=== PATIENT | female | born 1995 | race African-American/Black ===

== ENCOUNTER 2020-06-17 12:46 | Emergency (ER) | payer OTHER, SELFPAY ==
[2020-06-17] VITALS (8 sets, daily range): BP systolic 124–151; BP diastolic 60–84; PULSE 67–83; RESP 16–22; TEMP 36.8; O2SAT 100
--- NOTE | ~2020-06-17 | XR_ITS ---
EXAMINATION: XR chest 2V EXAM DATE: 06/17/2020 14:04 INDICATION: Chest pain . TECHNIQUE: Frontal and lateral projections of the chest obtained and reviewed. Comparison is made to prior examination from 07/09/2018. FINDINGS: The lungs are clear. There are no pleural effusions. The cardiomediastinal silhouette is within normal limits. There is no pneumothorax suspected. Mild thoracic spondylosis. IMPRESSION: No acute cardiopulmonary findings. Reviewed, dictated and finalized at location B. OR SYSTEMS ADMINISTRATOR
--- NOTE | 2020-06-17 13:17 | ED.CHESTPAIN ---
HPI - Chest Pain General Chief Complaint: Chest Pain Stated Complaint: Chest Pain Time Seen by Provider: 06/17/20 13:00 History of Present Illness HPI narrative: Patient is a 25-year-old female who presents the ER with chest pain. Ongoing for 3 days. Is been intermittent in nature. Lasts no longer than a minute. Is occurred 1 time a day for each the last few days. Initially left side. Then it became bilateral, and then it was once again left-sided. Sharp/achy. No radiation. No nausea/vomiting/sweats/dyspnea. No known trauma. Has family history of heart disease with an uncle dying at age 10 and her father dying in his 40s of an CT. She is unsure what her uncles heart ailment was. She has never seen a rn cardiac and has not had heart disease diagnosed personally. Related Data Home Medications Medication Instructions Recorded Confirmed albuterol sulfate INHALATION 06/17/20 Allergies Allergy/AdvReac Type Severity Reaction Status Date / Time codeine Allergy Intermediate Hives / Verified 06/17/20 12:58 Red Face Penicillins Allergy Intermediate Hives / Verified 06/17/20 12:58 Red Face Review of Systems Review of Systems: All systems reviewed & are unremarkable except as noted in HPI and below Constitutional: Constitutional: Denies chills, Denies fever(s) and Denies weakness ENT: Denies nasal congestion and Denies sore throat Cardiovascular: Cardiovascular: Reports chest pain, Denies rapid heart rate and Denies radiating jaw, neck or arm pain Respiratory: Respiratory: Denies cough, Denies dyspnea and Denies wheezing Gastrointestinal: Gastrointestinal: Denies nausea and Denies vomiting PMFSH Past Medical History Medical History (Updated 06/17/20 @ 16:34 by Justin Tripathi MD) Asthma Surgical History Surgical History (Updated 06/17/20 @ 13:18 by Justin Tripathi MD) History of section Social History Social History (Updated 06/17/20 @ 13:18 by Justin Tripathi MD) Smoking status: Never smoker Exam Narrative: Exam Narrative: GENERAL: Well-appearing, well-nourished, and in no acute distress. HEAD: Normocephalic, atraumatic.. CHEST: Clear to auscultation. No respiratory distress. No reproducible chest wall tenderness. HEART: Regular rate and rhythm. Normal peripheral pulses. ABDOMEN: Soft, nontender, nondistended. EXTREMITIES: Normal range of motion. No edema. SKIN: Warm, dry, no rash. NEURO: Alert and oriented x3. PSYCH: Normal mood and affect. Course Course Emergency Course: Troponin negative. Chest pain-free. Discharge home. Recommend establishing care with primary care doctor given her family history of heart issues. Vital Signs Vital signs: Vital Signs Temperature 98.3 F 06/17/20 12:55 Pulse Rate 79 06/17/20 12:55 Respiratory Rate 16 06/17/20 12:55 Blood Pressure 124/78 06/17/20 12:55 Pulse Oximetry 100 06/17/20 12:55 Temperature 98.3 F 06/17/20 12:55 Pulse Rate 71 06/17/20 14:32 Respiratory Rate 19 06/17/20 14:32 Blood Pressure 151/84 H 06/17/20 14:32 Pulse Oximetry 100 06/17/20 14:32 MDM - Chest Pain Lab Data Result diagrams: 06/17/20 13:54 06/17/20 13:54 Labs: Lab Results 06/17/20 06/17/20 Range/Units 13:54 13:54 WBC 5.4 (4.5-10.0) K/mm3 RBC 4.33 (4.2-5.4) M/mm3 Hgb 10.6 L (12.0-15.0) g/dL Hct 33.9 L (37.0-47.0) % MCV 78.3 L (80-100) fl MCH 24.5 L (26-34) pg MCHC 31.3 L (32-36) g/dl RDW 17.9 H (11.5-14.5) % Plt Count 287 (150-375) k/mm3 MPV 11.0 H (7.4-10.4) fl Immature Gran % (Auto) 0.2 (0-0.5) % Neut % (Auto) 42.1 L (45.5-73.1) % Lymph % (Auto) 48.0 H (18.3-44.2) % Scott % (Auto) 6.6 (2.6-8.5) % Eos % (Auto) 2.4 (0-4.4) % Baso % (Auto) 0.7 (0.2-1.2) % Lymph # (Auto) 2.60 (0.9-3.2) K/mm3 Scott # (Auto) 0.4 (0.1-0.6) K/mm3 Eos # (Auto) 0.1 (0-0.3) K/mm3 Baso # (Auto) 0.0 (0.0-0.1)
[2020-06-17 14:07] LABS: Basophils Percent Auto 0.7 % (0.2-1.2); Eosinophils Absolute Auto 0.1 K/mm3 (0-0.3); Eosinophils Percent Auto 2.4 % (0-4.4); Hematocrit 33.9 % (37.0-47.0); Hemoglobin 10.6 g/dL (12.0-15.0); Immature Granulocyte Absolute 0.01 K/mm3 (0.00-0.031); Immature Granulocyte Percent A 0.2 % (0-0.5); Mean Corpuscular HGB Conc 31.3 g/dl (32-36); Mean Corpuscular Hemoglobin 24.5 pg (26-34); Mean Corpuscular Volume 78.3 fl (80-100); Monocytes Absolute Auto 0.4 K/mm3 (0.1-0.6); Monocytes Percent Auto 6.6 % (2.6-8.5); Neutrophils Absolute Auto 2.3 K/mm3 (1.3-6.7); Neutrophils Percent Auto 42.1 % (45.5-73.1); Platelet Count Result 287 k/mm3 (150-375); Red Blood Count 4.33 M/mm3 (4.2-5.4); Red Cell Distribution Width 17.9 % (11.5-14.5); White Blood Count 5.4 K/mm3 (4.5-10.0)
[2020-06-17 14:18] LABS: Anion Gap 7 mmol/L (8-16); Blood Urea Nitrogen 12 mg/dL (7-17); Calcium 8.9 mg/dL (8.4-10.2); Carbon Dioxide 24 mmol/L (22-30); Chloride 108 mmol/L (98-107); Estimated CRCL calculation 85 ml/min; Estimated Glomerular Filt Rate > 60; Glucose 90 mg/dL (65-105); Sodium 139 mmol/L (137-145)
[2020-06-17 14:30] LABS: Troponin I < 0.012 ng/mL (0.000-0.034)
--- NOTE | 2020-06-17 15:01 | ECG_ITS ---
Measurements Intervals [place] Rate: 67 P: 16 PA: 170 QRS: 31 QRSD: 86 T: 11 QT: 362 QTc: 382 Interpretive Statements SINUS RHYTHM WITH SINUS ARRHYTHMIA BASELINE WANDER- V3-V6 BORDERLINE ECG Electronically Signed On 06-17-2020 16:17:20 [employer]IRE WALKER by Leon Alfonso D.O.
== END 2020-06-17 17:08 | disposition home or self-care (01) ==
PROVIDERS: Emergency Provider Emergency Medicine
DX: R07.89 Other chest pain (principal); J45.909 Unspecified asthma, uncomplicated
CPT/HCPCS: 36415; 71046; 80048; 84484; 85025; 93005; 99284

== ENCOUNTER 2020-09-24 22:36 | Emergency (ER) | payer OTHER, SELFPAY ==
--- NOTE | 2020-09-24 22:44 | ED.URI ---
HPI - URI/Sore Throat General Chief Complaint: Upper Respiratory Infection Stated Complaint: sore throat , ear ache, headache Time Seen by Provider: 09/24/20 22:38 History of Present Illness HPI Narrative: Sore throat for 3 days. now left ear pressure and intermittent headaches. Negative COVID test today. Her son also has an ear ache. No cough, fever, nausea. Related Data Home Medications Medication Instructions Recorded Confirmed albuterol sulfate INHALATION 06/17/20 Allergies Allergy/AdvReac Type Severity Reaction Status Date / Time codeine Allergy Intermediate Hives / Verified 06/17/20 12:58 Red Face Penicillins Allergy Intermediate Hives / Verified 06/17/20 12:58 Red Face Review of Systems Review of Systems: All systems reviewed & are unremarkable except as noted in HPI and below Constitutional: Constitutional: Reports as per HPI ENT: Reports as per HPI Cardiovascular: Cardiovascular: Denies chest pain Respiratory: Respiratory: Denies cough and Denies dyspnea Gastrointestinal: Gastrointestinal: Denies abdominal pain and Denies nausea Genitourinary: Genitourinary: Reports no additional female genitourinary complaints PMFSH Past Medical History Medical History Asthma Surgical History Surgical History History of section Social History Social History Smoking status: Never smoker Exam Const: General: healthy appearing, no acute distress and alert Nutritional Appearance: well nourished Orientation/consciousness: patient oriented x3 HENMT: Ears: TM's normal bilaterally and EAC's normal Other: bilateral tonsillar enlargement. Mild oropharyngeal erythema Neck: Neck: lymphadenopathy (anterior) Resp: Effort & Inspection: normal respiratory effort Auscultation: clear to auscultation bilaterally Cardio: Rate: regular rate Rhythm: regular rhythm Skin: General skin exam: normal color Neuro: General: patient oriented x3, moves all extremities and no focal motor deficits Speech: normal speech Gait exam (Neuro): Normal gait present Course Vital Signs Vital signs: Vital Signs Temperature 36.8 C 09/24/20 22:50 Pulse Rate 100 09/24/20 22:50 Respiratory Rate 14 09/24/20 22:50 Blood Pressure 120/88 09/24/20 22:50 Pulse Oximetry 100 09/24/20 22:50 Temperature 36.8 C 09/24/20 22:50 Pulse Rate 97 09/25/20 00:40 Respiratory Rate 18 09/25/20 00:40 Blood Pressure 131/77 09/25/20 00:40 Pulse Oximetry 100 09/25/20 00:40 MDM - URI/Sore Throat Differential Diagnosis Differential diagnosis: Likely viral infection, influenza and pharyngitis Lab Data Attestation: I reviewed the patient's lab results. Labs: Strep Screen Positive Group A Strep *(Reference Range: Negative)* Discharge Plan Discharge Clinical Impression: Acute streptococcal pharyngitis Patient Disposition: Home, Self-Care Condition: Stable Instructions: Antibiotic Form, Strep Throat (ED) Prescriptions: New azithromycin 250 mg tablet See Rx Instructions .ROUTE .COMPLEX Qty: 6 RF: 0 No Action albuterol sulfate 90 mcg/actuation HFA aerosol inhaler INHALATION RF: 0 naproxen 500 mg tablet 500 mg PO BID Qty: 20 RF: 0 Follow-up/Referrals: PHYSICIAN,PRESS CUTTER [Primary Care Provider] - Jona Ortiz MD [Physician] -
[2020-09-24 22:50] VITALS: BP 120/88; PULSE 100; RESP 14; TEMP 36.8; O2SAT 100
[2020-09-24] MEDS: DEXAMETHASONE SOD PHOS INJ 4 MG/ML VIAL 10 MG IM (23:53)
[2020-09-25] MEDS: AZITHROMYCIN 250 MG TABLET 500 MG PO (00:12)
[2020-09-25 00:40] VITALS: BP 131/77; PULSE 97; RESP 18; O2SAT 100
== END 2020-09-25 00:49 | disposition home or self-care (01) ==
PROVIDERS: Emergency Provider Emergency Medicine
DX: J02.0 Streptococcal pharyngitis (principal); J45.909 Unspecified asthma, uncomplicated
CPT/HCPCS: 87880; 96372; 99283; A9270; J1100

== ENCOUNTER 2021-03-08 09:25 | Emergency (ER) | payer OTHER, SELFPAY ==
[2021-03-08 09:35] VITALS: BP 123/78; PULSE 78; RESP 16; TEMP 36.6; O2SAT 99
--- NOTE | 2021-03-08 09:48 | ED.URI ---
HPI - URI/Sore Throat General Chief Complaint: Upper Respiratory Infection Stated Complaint: sore throat/abd pain Time Seen by Provider: 03/08/21 09:48 Source: patient and RN notes reviewed Mode of arrival: ambulatory Limitations: no limitations History of Present Illness HPI Narrative: 25-year-old female presents to the [facility] with complaints of sore throat, bilateral ear discomfort and an upset stomach. Patient states it feels like something rolled into her ears. Denies abdominal pain but states that when she eats stomach feels like it is cramping. Last menstrual period 2 to 3 weeks ago Related Data Home Medications Medication Instructions Recorded Confirmed levonorgestrel-ethinyl estrad tablet 03/08/21 [Lutera (28)] Allergies Allergy/AdvReac Type Severity Reaction Status Date / Time codeine Allergy Intermediate Hives / Verified 06/17/20 12:58 Red Face Penicillins Allergy Intermediate Hives / Verified 06/17/20 12:58 Red Face Review of Systems Review of Systems: All systems reviewed & are unremarkable except as noted in HPI and below Constitutional: Constitutional: Reports as per HPI, Reports chills and Denies fever(s) Eyes: Eyes: Reports no additional eye complaints ENT: Reports as per HPI and Reports sore throat Comments: Bilateral ear discomfort Cardiovascular: Cardiovascular: Reports no additional cardiovascular complaints and Denies chest pain Respiratory: Respiratory: Reports no additional respiratory complaints, Denies cough and Denies dyspnea Gastrointestinal: Gastrointestinal: Reports as per HPI, Denies abdominal pain, Denies diarrhea, Denies nausea and Denies vomiting Genitourinary: Genitourinary: Reports no additional female genitourinary complaints Musculoskeletal: Musculoskeletal: Reports no additional musculoskeletal complaints Integumentary/Breasts: Skin/Breast: Reports system reviewed and no additional complaints, except as docu Neurologic: Reports system reviewed and no additional complaints, except as documented Psychiatric: Psychiatric: Reports no additional psychiatric complaints Allergic/Immunologic: Allergic/Immunologic: Reports no additional allergic/immunologic complaints PMFSH Past Medical History Medical History Asthma Surgical History Surgical History History of section Social History Social History Smoking status: Never smoker Comments At the time of my signature, I reviewed and agree with the nursing past medical, surgical, social, and family history. There is no relevant family history pertinent to the patient complaint. Exam Const: General: healthy appearing, no acute distress and alert Nutritional Appearance: well nourished and obese Orientation/consciousness: patient oriented x3 Limitations: no limitations HENMT: Head: normal to inspection Ears: external ears normal, EAC's normal and TM abnormal with fluid behind the TM bilateral Mouth: Yes lip normal Eyes: Conjunctivae: conjunctivae normal Pupils: Equal, round and reactive pupils present Neck: Neck: normal visual inspection, no lymphadenopathy and no meningeal signs Chest: Chest palpation & inspection: normal inspection of the chest Resp: Effort & Inspection: normal respiratory effort and no use of accessory muscles Auscultation: clear to auscultation bilaterally, no crackles, no rales, no rhonchi and no wheezes Cardio: Rate: regular rate Rhythm: regular rhythm GI: GI Palp: Yes Soft to palpation, No Tenderness to palpation present (GI), No Guarding due to palpation present (GI) and No Rebound tenderness present Auscultation: normal bowel sounds : General: Yes no CVA tenderness Back/Spine/Pelvis: Back: no CVA tenderness Skin: General skin exam: normal color Rashes: no rashes Wounds: no wounds Neuro: Genera
== END 2021-03-08 10:01 | disposition home or self-care (01) ==
PROVIDERS: Emergency Provider Nurse Practitioner
DX: J02.8 Acute pharyngitis due to other specified organisms (principal); J45.909 Unspecified asthma, uncomplicated
CPT/HCPCS: 87081; 87147; 87880; 99213; G0463

== ENCOUNTER → 2021-09-21 15:52 | Outpatient (CLI) | payer OTHER, SELFPAY ==
--- NOTE | ~2021-09-21 | XR_ITS ---
EXAMINATION: XR chest 2V EXAM DATE: 09/21/2021 16:23 INDICATION: Pre-op, Hx of asthma. TECHNIQUE: Frontal and lateral projections of the chest obtained and reviewed. Comparison is made to prior examination from 06/17/2020. FINDINGS: The lungs are clear. There are no pleural effusions. The cardiomediastinal silhouette is within normal limits. There is no pneumothorax suspected. The bones and soft tissues are unremarkab le. IMPRESSION: No acute cardiopulmonary findings. Reviewed, dictated and finalized at location B.
== END ==
DX: Z01.810 Encounter for preprocedural cardiovascular examination (principal)
CPT/HCPCS: 71046

== ENCOUNTER 2021-09-23 14:29 | Outpatient (CLI) | payer OTHER, SELFPAY ==
--- NOTE | 2021-09-23 | ECG_ITS ---
Measurements Intervals [place] Rate: 58 P: 19 MS: 159 QRS: 15 QRSD: 78 T: -4 QT: 383 QTc: 377 Interpretive Statements SINUS BRADYCARDIA WITH SINUS ARRHYTHMIA NONSPECIFIC T-WAVE ABNORMALITY BORDERLINE ECG COMPARED TO ECG 06/17/2020 12:56:46 SINUS BRADYCARDIA NOW PRESENT T-WAVE ABNORMALITY NOW PRESENT Electronically Signed On 09-23-2021 15:36:06 CDT by Grover Liu M.D.
== END 2021-09-23 14:30 | disposition home or self-care (01) ==
LOC: ANHCARD 14:41
DX: Z01.810 Encounter for preprocedural cardiovascular examination (principal); R00.1 Bradycardia, unspecified
CPT/HCPCS: 93005

== ENCOUNTER 2021-10-30 17:50 | Emergency (ER) | payer OTHER, SELFPAY ==
--- NOTE | 2021-10-30 17:53 | ED.URI ---
HPI - URI/Sore Throat General Chief Complaint: Asthma Stated Complaint: shortness of breath, loss of appetite, chest pain Time Seen by Provider: 10/30/21 17:53 Source: patient and RN notes reviewed History of Present Illness HPI Narrative: Patient is a 26-year-old female who presents the urgent care with complaints of cough, congestion, shortness of breath and loss of appetite. Patient states that she had a negative COVID test this morning at work. Patient is on day 3 of symptoms and has been using her nebulizers and inhalers for her history of asthma. Patient is also taking Robitussin for the cough. Denies of any nausea or vomiting. Also reports of some frequency of urination. However, patient is 6 weeks . No other acute complaints. Patient appears fatigued and slightly diaphoretic. Patient aware of the plan of care. Some parts of this dictation were generated by voice recognition software and may contain typographical and/or grammatical inaccuracies. Related Data Home Medications Medication Instructions Recorded Confirmed albuterol 90 mcg INHALATION PRN PRN 10/30/21 10/30/21 Allergies Allergy/AdvReac Type Severity Reaction Status Date / Time codeine Allergy Intermediate Hives / Verified 10/30/21 18:00 Red Face Penicillins Allergy Intermediate Hives / Verified 10/30/21 18:00 Red Face Review of Systems Review of Systems: CONSTITUTIONAL: Reports of chills and sweats EYES: Denies visual changes, redness, or discharge. ENT: Denies rhinorrhea, congestion, sore throat, or otalgia. CARDIOVASCULAR: Denies chest pain, palpitations, or edema. RESPIRATORY: Reports of cough with dyspnea and chest congestion GASTROINTESTINAL: Denies abdominal pain, nausea, vomiting, or diarrhea. Reports of decreased appetite GENITOURINARY: Reports of urinary frequency SKIN: Denies rash or itching. MUSCULOSKELETAL: Denies back pain, joint pain, or myalgia. NEUROLOGIC: Denies headache, numbness, or weakness. All other systems reviewed are negative, except as documented in HPI. [facility] Past Medical History Medical History Asthma Surgical History Surgical History History of section Social History Social History (Reviewed 03/08/21 @ 12:23 by TIFFANIE Reed Smoking status: Never smoker Comments At the time of my signature, I reviewed and agree with the nursing past medical, surgical, social, and family history. There is no relevant family history pertinent to the patient complaint. Exam Narrative: GENERAL: This is a well-nourished, well-developed patient. Appears very fatigued HEAD: normocephalic, atraumatic. EYES: PERRL. Sclera clear/white. Vision is grossly intact. EARS: External ears normal, auditory canals clear and without drainage, TMs normal without perforation. Hearing grossly intact. NOSE: External nose normal with no obvious nasal discharge, nares without redness, clear rhinorrhea. THROAT: Mucous membranes moist, posterior pharynx clear. Moderate postnasal drainage NECK: Neck supple CARDIOVASCULAR: Tachycardia RESPIRATORY: Clear to auscultation. Breath sounds equal bilaterally. No wheezes, rales, or rhonchi. SKIN: Slightly diaphoretic. Warm, intact with no suspicious lesions or rash, good texture and turgor. NEURO: awake, alert, and oriented to person, place and time. There were no obvious focal neurologic abnormalities. EXTREMITIES: No clubbing, cyanosis, or edema. Course Course Level of Care: Express Care Visit Vital Signs Vital signs: Vital Signs Temperature 100.5 F H 10/30/21 17:56 Pulse Rate 133 H 10/30/21 17:56 Respiratory Rate 20 10/30/21 17:56 Blood Pressure 125/64 10/30/21 17:56 Pulse Oximetry 100 10/30/21 17:56 Temperature 100.5 F H 10/30/21 17:56 Pulse Rate 133 H 10/30/21 17:56 Respiratory Rate 20 10/30/21 17:56 Blood Pressure 125/64
[2021-10-30 17:56] VITALS: BP 125/64; PULSE 133; RESP 20; TEMP 38.1; O2SAT 100
[2021-10-30 18:22] VITALS: PULSE 98
== END 2021-10-30 18:26 | disposition home or self-care (01) ==
PROVIDERS: Emergency Provider Nurse Practitioner Family
DX: J10.1 Influenza due to other identified influenza virus with other respiratory manifestations (principal)
CPT/HCPCS: 81003; 87804; 99213; G0463

== ENCOUNTER 2022-01-06 12:42 | Outpatient (CLI) | payer OTHER, SELFPAY ==
--- NOTE | ~2022-01-06 | US_ITS ---
EXAMINATION: US pelvic complete w TV DATE: 01/06/2022 13:58 INDICATION: Complete . Anemia. Comparison:No prior studies for comparison. TECHNIQUE: Multiple transabdominal and endovaginal sonographic images of the pelvis performed. FINDINGS: The uterus measures 8.6 x 4.8 x 6 cm. Uterine myometrium is heterogeneous, although no disc rete mass identified. The endometrial complex measures 11 mm. The right ovary measures 3.8 x 2.3 x 2.1 cm and the left ovary measures 4.6 x 2.2 x 3 cm. There are small follicles in each ovary. Normal doppler signal in both ovaries. There is free fluid in the pelvis. There are no abnormal masses seen on either side. IMPRESSION: 1. Unremarkable pelvic ultrasound. Reviewed, dictated and finalized at location A.
== END 2022-01-06 12:43 | disposition home or self-care (01) ==
LOC: ANHIMG 12:42
PROVIDERS: Visit Provider Advanced Practice Midwife
DX: O04.80 (Induced) termination of pregnancy with unspecified complications (principal); D50.9 Iron deficiency anemia, unspecified
CPT/HCPCS: 76830; 76856

== ENCOUNTER 2022-01-31 17:16 | Emergency (ER) | payer OTHER, SELFPAY ==
[2022-01-31 17:24] VITALS: BP 138/81; PULSE 71; RESP 16; TEMP 36.4; O2SAT 100
--- NOTE | 2022-01-31 17:43 | ED.GENADULT ---
HPI - General Adult General Chief complaint: Nausea/Vomiting/Diarrhea Stated complaint: Nausea Time Seen by Provider: 01/31/22 17:43 Source: patient Mode of arrival: ambulatory Limitations: no limitations History of Present Illness HPI narrative: 26 yo F presents with c/o nausea for 3 days. Reports congestion, sore throat, fatigue starting today. Thinks might be weather related. Would like test. Had in October. Has not had normal period since then. No ABD pain at this time. No urinary symptoms. All systems reviewed and negative except as noted above. Related Data Home Medications Medication Instructions Recorded Confirmed buspirone 7.5 mg tablet 7.5 mg PO BID 01/31/22 01/31/22 Allergies Allergy/AdvReac Type Severity Reaction Status Date / Time codeine Allergy Intermediate Hives / Verified 01/31/22 17:17 Red Face Penicillins Allergy Intermediate Hives / Verified 01/31/22 17:17 Red Face Review of Systems Review of Systems: CONSTITUTIONAL: Denies fever, chills, or sweats. EYES: Denies visual changes, redness, or discharge. ENT: Reports rhinorrhea, congestion, sore throat. Denies otalgia. CARDIOVASCULAR: Denies chest pain, palpitations, or edema. RESPIRATORY: Denies cough or dyspnea. GASTROINTESTINAL: Denies abdominal pain, vomiting, or diarrhea. Reports nausea. GENITOURINARY: Denies dysuria or hematuria. SKIN: Denies rash or itching. MUSCULOSKELETAL: Denies back pain, joint pain, or myalgia. NEUROLOGIC: Denies headache, numbness, or weakness. PSYCHIATRIC: Denies anxiety or depression. All other systems reviewed are negative, except as documented in HPI. PMFSH Past Medical History Medical History Asthma Surgical History Surgical History History of section Social History Social History Smoking status: Never smoker Comments At time of signature, agree with nursing past medical, surgical, social and family history. There is no relevant family history pertinent to the presenting complaint. Exam Narrative: GENERAL: This is a well-nourished, well-developed patient, in no apparent distress. HEAD: normocephalic, atraumatic. EYES: PERRL. Sclera clear/white. Vision is grossly intact. EARS: External ears normal, auditory canals clear and without drainage, TMs normal without perforation. Hearing grossly intact. NOSE: External nose normal with clear nasal drainage, erythema and swelling to both nares. THROAT: Mucous membranes moist, no erythema to posterior pharynx. Clear postnasal drainage noted. NECK: Neck supple, non-tender without lymphadenopathy, masses or thyromegaly. CARDIOVASCULAR: Regular rate and rhythm without murmurs, gallops, or rubs. RESPIRATORY: Clear to auscultation. Breath sounds equal bilaterally. No wheezes, rales, or rhonchi. GASTROINTESTINAL: Abdomen soft, non-tender, nondistended. Bowel sounds are active. No hepato-splenomegaly, or palpable masses. No guarding. SKIN: warm, Dry, intact with no suspicious lesions or rash, good texture and turgor. NEURO: awake, alert, and oriented to person, place and time. There were no obvious focal neurologic abnormalities. EXTREMITIES: No joint tenderness, effusion, or edema noted. Course Course Level of Care: Express Care Visit Vital Signs Vital signs: Vital Signs Temperature 36.4 C 01/31/22 17:24 Pulse Rate 71 01/31/22 17:24 Respiratory Rate 16 01/31/22 17:24 Blood Pressure 138/81 01/31/22 17:24 Pulse Oximetry 100 01/31/22 17:24 Oxygen Delivery Room Air 01/31/22 17:24 Temperature 36.4 C 01/31/22 17:24 Pulse Rate 71 01/31/22 17:24 Respiratory Rate 16 01/31/22 17:24 Blood Pressure 138/81 01/31/22 17:24 Pulse Oximetry 100 01/31/22 17:24 Oxygen Delivery Room Air 01/31/22 17:24 Reviewed Medical Decision Making MATTHEW Treviño
== END 2022-01-31 18:05 | disposition home or self-care (01) ==
PROVIDERS: Emergency Provider Nurse Practitioner Family
DX: J30.2 Other seasonal allergic rhinitis (principal); J02.0 Streptococcal pharyngitis; R11.0 Nausea; Z20.822 Contact with and (suspected) exposure to COVID-19; J45.909 Unspecified asthma, uncomplicated
CPT/HCPCS: 81025; 87081; 87147; 87426; 87880; 99213; C9803; G0463

== ENCOUNTER 2022-05-30 22:16 | Emergency (ER) | payer OTHER, SELFPAY ==
--- NOTE | ~2022-05-30 | CT_ITS ---
EXAMINATION: CT abdomen pelvis w con DATE: 05/31/2022 01:29 INDICATION: Abdominal pain TECHNIQUE: Computed tomography (CT) of the abdomen and pelvis was performed with 100 CC Omnipaque 350 intravenous contrast. Automated exposure control and iterative reconstruction technique were employe d. Exam dose: 488.27 mGy-cm total exam DLP. COMPARISON: None. FINDINGS: The lung bases are clear. Normal heart size. No pericardial or pleural effusion. The liver, gallbladder, bile ducts, pancreas, pancreatic duct, spleen, and adrenal glands and kidneys are normal. Normal caliber of the abdominal aorta. No intraperitoneal or retroperitoneal or pelvic m ass lesion or adenopathy or ascites. Uterus, adnexal areas and urinary bladder are unremarkable. Normal appendix. There are fluid containing small bowel segments with air-fluid levels, without abnormal dilatation; s uggesting enteritis or mild adynamic ileus. No bowel obstruction is noted no intraperitoneal free air . Included skeletal structures are unremarkable.. IMPRESSION: Small bowel air-fluid levels without dilatation, suggesting enteritis or mild adynamic i leus Normal appendix Reviewed, dictated and finalized at [facility]. Reviewed, dictated and finalized at [facility]. [employer] IMPRESSION: Small bowel air-fluid levels without dilatation, suggesting enteri tis or mild adynamic ileus Normal appendix
[2022-05-30 22:27] VITALS: BP 143/91; PULSE 80; RESP 18; TEMP 36.3; O2SAT 100
[2022-05-30 22:49] VITALS: BP 132/87; PULSE 66; RESP 22; O2SAT 99
[2022-05-30 22:59] VITALS: BP 132/87; PULSE 74; RESP 19
[2022-05-30 23:17] VITALS: PULSE 80; RESP 23; O2SAT 98
[2022-05-30 23:30] VITALS: PULSE 60; RESP 25; O2SAT 100
--- NOTE | 2022-05-30 23:35 | ED.ABDPAIN ---
HPI - Abdominal Pain General Chief Complaint: Abdominal Pain Stated Complaint: Abd pain x4 days Time Seen by Provider: 05/30/22 22:42 Source: patient Mode of arrival: ambulatory Limitations: no limitations History of Present Illness HPI narrative: This is a 27 year old female that presents to the ER for abdominal pain ongoing over the last couple of days. Reports mid abdominal pain that is sharp in nature. Associated with nausea. Denies fever, vomiting, diarrhea, dysuria or hematuria. Related Data Home Medications Medication Instructions Recorded Confirmed buspirone 7.5 mg tablet 7.5 mg PO BID 01/31/22 01/31/22 Allergies Allergy/AdvReac Type Severity Reaction Status Date / Time codeine Allergy Intermediate Hives / Verified 01/31/22 17:17 Red Face Penicillins Allergy Intermediate Hives / Verified 01/31/22 17:17 Red Face Review of Systems Review of Systems: CONSTITUTIONAL: Denies fever GASTROINTESTINAL: Report abdominal pain, nausea. Denies vomiting, or diarrhea. GENITOURINARY: Denies dysuria or hematuria. All systems reviewed & are unremarkable except as noted in HPI and below PMFSH Past Medical History Medical History Asthma Surgical History Surgical History History of section Social History Social History Smoking status: Never smoker Exam Narrative: GENERAL: Well-appearing, well-nourished, and in no acute distress. HEAD: Normocephalic, atraumatic. EYES: EOMI. CHEST: Clear to auscultation. No respiratory distress. No wheezes rales or rhonchi HEART: Regular rate and rhythm. No murmur heard. Normal peripheral pulses. ABDOMEN: Soft, nondistended, normal active bowel sounds. Mild tenderness to palpation throughout the mid abdomen, without guarding. No CVA tenderness EXTREMITIES: Normal range of motion. No edema. SKIN: Warm, dry, no rash. NEURO: No focal deficits. Alert and oriented x3. PSYCH: Normal mood and affect Course Vital Signs Vital signs: Vital Signs Temperature 97.4 F L 05/30/22 22:27 Pulse Rate 80 05/30/22 22:27 Respiratory Rate 18 05/30/22 22:27 Blood Pressure 143/91 H 05/30/22 22:27 Pulse Oximetry 100 05/30/22 22:27 Oxygen Delivery Room Air 05/30/22 22:27 Temperature 97.4 F L 05/30/22 22:27 Pulse Rate 78 05/31/22 04:02 Respiratory Rate 19 05/31/22 04:02 Blood Pressure 127/79 05/31/22 04:02 Pulse Oximetry 99 05/31/22 04:02 Oxygen Delivery Room Air 05/30/22 22:27 MDM - Abdominal Pain MDM Narrative Medical decision making narrative: Patient presents to the ER for mid abdominal pain ongoing over the last 4 days. She is afebrile and nontoxic appearing. Her vitals are stable. CBC is without leukocytosis. Does show microcytic anemia with hemoglobin of 9.5. Her hemoglobin does appear to be around her baseline. Metabolic panel with evidence some dehydration. Patient hydrated with a liter of IV fluids in the ED. UA without evidence of infection. Bedside test is negative. CT scan of the abdomen/pelvis was obtained. Care taken over by Dr. Ingram at shift change Lab Data Attestation: I reviewed the patient's lab results. 05/30/22 23:02 05/30/22 23:02 Labs: Lab Results 05/30/22 05/30/22 05/30/22 Range/Units 23:13 23:44 23:44 WBC 6.2 (4.5-10.0) K/mm3 RBC 4.14 L (4.2-5.4) M/mm3 Hgb 9.5 L (12.0-15.0) g/dL Hct 30.8 L (37.0-47.0) % MCV 74.4 L (80-100) fl MCH 22.9 L (26-34) pg MCHC 30.8 L (32-36) g/dl RDW 18.0 H (11.5-14.5) % Plt Count 284 (150-375) k/mm3 MPV 11.1 H (7.4-10.4) fl Immature Gran % (Auto) 0.2 (0-0.5) % Neut % (Auto) 47.4 (45.5-73.1) % Lymph % (Auto) 40.4 (18.3-44.2) % Coos % (Auto) 9.6 H (2.6-8.5) % Eos % (Auto) 1.8 (0-4.4) % Baso % (A
[2022-05-30 23:39] LABS: Appearance Urine Clear (Clear); Bilirubin Urine Negative (Negative); Blood Urine Negative (Negative); Color Urine Yellow (Yellow); Glucose Urine UA Negative (Negative); Ketones Urine Negative (Negative); Leukocyte Esterase Ur Negative LEU/UL (Negative); Nitrate Urine Negative (Negative); Protein Urine Negative (Negative); pH Urine 5.5 (5.0-9.0)
[2022-05-30 23:44] LABS: Bacteria Urine Trace /hpf; Mucus Urine Rare /lpf; RBC Urine 0-2 /hpf (0-2); Squamous Epithelial Cell Urine Moderate /hpf (Few); WBC Urine 0-3 /hpf
[2022-05-30 23:45] VITALS: PULSE 62; RESP 15; O2SAT 100
[2022-05-30 23:47] LABS: Add Urine Microscopic? NO
[2022-05-30 23:52] LABS: Basophils Percent Auto 0.6 % (0.2-1.2); Eosinophils Absolute Auto 0.1 K/mm3 (0-0.3); Eosinophils Percent Auto 1.8 % (0-4.4); Hematocrit 30.8 % (37.0-47.0); Hemoglobin 9.5 g/dL (12.0-15.0); Immature Granulocyte Absolute 0.01 K/mm3 (0.00-0.031); Immature Granulocyte Percent A 0.2 % (0-0.5); Lymphocytes Absolute Auto 2.52 K/mm3 (0.9-3.2); Lymphocytes Percent Auto 40.4 % (18.3-44.2); Mean Corpuscular HGB Conc 30.8 g/dl (32-36); Mean Corpuscular Hemoglobin 22.9 pg (26-34); Mean Corpuscular Volume 74.4 fl (80-100); Mean Platelet Volume 11.1 fl (7.4-10.4); Monocytes Absolute Auto 0.6 K/mm3 (0.1-0.6); Monocytes Percent Auto 9.6 % (2.6-8.5); Neutrophils Percent Auto 47.4 % (45.5-73.1); Platelet Count Result 284 k/mm3 (150-375); Red Blood Count 4.14 M/mm3 (4.2-5.4); White Blood Count 6.2 K/mm3 (4.5-10.0)
[2022-05-30] MEDS: ONDANSETRON INJ 4 MG/2 ML VIAL IV PUSH (23:53)
[2022-05-30] MEDS: FAMOTIDINE 20 MG/2 ML VIAL IV PUSH (23:53)
[2022-05-31] VITALS (16 sets, daily range): BP systolic 127; BP diastolic 79; PULSE 56–87; RESP 17–23; O2SAT 99–100
[2022-05-31 00:11] LABS: Anisocytosis 1+ (NORMAL); Platelet Estimate Adequate (Adequate)
[2022-05-31 00:12] LABS: Poikilocytosis 1+ (NORMAL)
[2022-05-31 00:36] LABS: Alanine Aminotransferase 33 U/L (6-35); Albumin Level 4.1 g/dL (3.5-5.1); Alkaline Phosphatase 51 U/L (38-126); Anion Gap 7 mmol/L (8-16); Aspartate Amino Transferase 38 U/L (14-36); Bilirubin,Total 0.2 mg/dL (0.2-1.3); Blood Urea Nitrogen 9 mg/dL (7-17); Calcium 8.5 mg/dL (8.4-10.2); Carbon Dioxide 19 mmol/L (22-30); Chloride 111 mmol/L (98-107); Estimated CRCL calculation 99 ml/min; Estimated Glomerular Filt Rate > 60; Glucose 88 mg/dL (65-110); Lipase 82 U/L (23-300); Sodium 137 mmol/L (137-145)
[2022-05-31] MEDS: SODIUM CHLORIDE 0.9% IV 1,000 ML 999 ML IV CONT (01:08)
== END 2022-05-31 04:10 | disposition home or self-care (01) ==
PROVIDERS: Physician Assistant; Emergency Provider Emergency Medicine
DX: K52.9 Noninfective gastroenteritis and colitis, unspecified (principal); J45.909 Unspecified asthma, uncomplicated
CPT/HCPCS: 36415; 74177; 80053; 81003; 81025; 83690; 85025; 96361; 96374; 96375; 99284; J0131; J2405; J7030; Q9967

== ENCOUNTER 2022-11-14 23:31 | Emergency (ER) | payer OTHER, SELFPAY ==
--- NOTE | ~2022-11-14 | XR_ITS ---
EXAMINATION: XR foot RT min 3V DATE: 11/15/2022 00:16 INDICATION: Right foot injury. TECHNIQUE: 4 views of right foot were obtained. COMPARISON: None. FINDINGS: Bone alignment is normal. No fracture. Joint spaces are well maintained. IMPRESSION: 1. Normal right foot. Reviewed, dictated and finalized at [facility]. IMPRESSION: 1. Normal right foot.
[2022-11-14 23:33] VITALS: BP 134/78; PULSE 138; RESP 20; TEMP 36.7; O2SAT 98
--- NOTE | 2022-11-15 01:37 | PC.NURSE ---
pt. called for triage, no answer
== END 2022-11-15 04:29 | disposition left against medical advice (07) ==
PROVIDERS: Emergency Provider Emergency Medicine
DX: S99.921A Unspecified injury of right foot, initial encounter (principal)
CPT/HCPCS: 73630; 99199

== ENCOUNTER 2023-02-23 11:36 | Emergency (ER) | payer OTHER, SELFPAY ==
[2023-02-23 11:42] VITALS: BP 150/96; PULSE 80; RESP 18; TEMP 36.4; O2SAT 100
--- NOTE | 2023-02-23 13:26 | PC.NURSE ---
Spoke with lab who stated they are out of kits to run COVID and flu tests.
[2023-02-23 13:38] LABS: Influenza A QL RT-PCR Negative (Negative); Influenza B QL RT-PCR Negative (Negative); RSV RNA, RT-PCR Negative (Negative); SARS-CoV-2 RNA PCR Negative (Negative)
--- NOTE | 2023-02-23 13:49 | ED.GENADULT ---
HPI - General Adult General Chief complaint: Unspecified Stated complaint: wants covid test Time Seen by Provider: 02/23/23 11:42 Source: patient Mode of arrival: ambulatory Limitations: no limitations History of Present Illness HPI narrative: This is a 27-year-old female who presents to the ED with chief complaint of viral URI symptoms for the past week. Patient states that she has had some sore throat, congestion, rhinorrhea, headache, general malaise. She states she works at the [employer] and she notes that many of their patients have been recently diagnosed with COVID. She is here requesting a COVID test. Denies fevers, chills, shortness of breath, chest pain, abdominal pain, nausea, vomiting, urinary symptoms. Related Data Home Medications Medication Instructions Recorded Confirmed buspirone 7.5 mg tablet 7.5 mg PO BID 01/31/22 01/31/22 Allergies Allergy/AdvReac Type Severity Reaction Status Date / Time codeine Allergy Intermediate Hives / Verified 01/31/22 17:17 Red Face Penicillins Allergy Intermediate Hives / Verified 01/31/22 17:17 Red Face Review of Systems Review of Systems: All systems as dictated in [facility] Past Medical History Medical History Asthma Surgical History Surgical History History of section Social History Social History Smoking status: Never smoker Exam Narrative: GENERAL: Well-appearing, well-nourished, and in no acute distress. HEAD: Normocephalic, atraumatic. EYES: PERRLA and EOMI. ENT: Mild posterior pharynx erythema and swelling. Nares clear, no rhinorrhea or epistaxis. Mucous membranes moist. Oropharynx without tonsillar hypertrophy exudate or other lesions. NECK: Supple. No adenopathy or masses. CHEST: No respiratory distress. Clear to auscultation. No wheezes rales or rhonchi HEART: Regular rate and rhythm. No murmur heard. Normal peripheral pulses. ABDOMEN: Soft, nontender, nondistended, normal active bowel sounds. MSK: Normal range of motion. No edema. SKIN: Warm, dry, no rash. NEURO: Alert and oriented x3. No focal deficits. PSYCH: Normal mood and affect. Course Vital Signs Vital signs: Vital Signs Temperature 97.6 F 02/23/23 11:42 Pulse Rate 80 02/23/23 11:42 Respiratory Rate 18 02/23/23 11:42 Blood Pressure 150/96 H 02/23/23 11:42 Pulse Oximetry 100 02/23/23 11:42 Temperature 97.6 F 02/23/23 11:42 Pulse Rate 80 02/23/23 11:42 Respiratory Rate 18 02/23/23 11:42 Blood Pressure 150/96 H 02/23/23 11:42 Pulse Oximetry 100 02/23/23 11:42 Medical Decision Making MDM Narrative Medical decision making narrative: This is a 27-year-old female who presents to the ED with chief complaint of viral URI symptoms for the past week. Vitals are normal. Exam reveals mildly swollen and erythematous tonsils and posterior pharynx. No exudates. 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 Symptoms are consistent with viral syndrome today. COVID, RSV and strep swabs are all negative. She likely has another virus that has been going around. Pt will be discharged in stable condition. Return precautions given and supportive measures discussed. Pt is understanding and agreeable with plan for discharge and follow-up with PCP. Vital Signs Vital Signs: Vital Signs Temperature 97.6 F 02/23/23 11:42 Pulse Rate 80 02/23/23 11:42 Respiratory Rate 18 02/23/23 11:42 Blood Pressure 150/96 H 02/23/23 11:42 Pulse Oximetry 100 02/23/23 11:42 Temperature 97.6 F 02/23/23 11:42 Pulse Rate 80 02/23/23 11:42 Respiratory Rate 18 02/23/23 11:42 Blood Pressure 150/96 H 02/23/23 11:42 Pulse Oximetry 100 02/23/23 11:42 Lab Data Labs: Lab Results 0
[2023-02-23 14:17] LABS: Strep Group A RT-PCR NOT DETECTED (Negative)
== END 2023-02-23 14:47 | disposition home or self-care (01) ==
PROVIDERS: Emergency Medicine; Emergency Provider Physician Assistant
DX: B34.9 Viral infection, unspecified (principal); Z20.822 Contact with and (suspected) exposure to COVID-19
CPT/HCPCS: 87637; 87651; 99283

== ENCOUNTER 2023-05-10 13:20 | Emergency (ER) | payer OTHER, SELFPAY ==
--- NOTE | 2023-05-10 13:34 | ED.URI ---
HPI - URI/Sore Throat General Chief Complaint: Upper Respiratory Infection Stated Complaint: HEADACHE/TIRED Time Seen by Provider: 05/10/23 13:57 Source: patient and RN notes reviewed Mode of arrival: ambulatory Limitations: no limitations History of Present Illness HPI Narrative: 28-year-old female presents concern for fatigue, headache that started yesterday. She reports that taking Tylenol ibuprofen without relief. 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 She denies nasal congestion, rhinorrhea, sore throat, cough, nausea, vomiting, diarrhea, dysuria, frequency, urgency. She reports she takes control every day. She reports her periods are irregular. MD elicited complaint: other (Fatigue, headache) Related Data Allergies Allergy/AdvReac Type Severity Reaction Status Date / Time codeine Allergy Intermediate Hives / Verified 05/10/23 13:36 Red Face Penicillins Allergy Intermediate Hives / Verified 05/10/23 13:36 Red Face Review of Systems Review of Systems: CONSTITUTIONAL: Denies malaise, chills, sweats, or fever. Reports fatigue EYES: Denies visual changes, redness, or discharge. ENT: Denies rhinorrhea, congestion, sinus pain, otalgia and sore throat. CARDIOVASCULAR: Denies chest pain, palpitations, or edema. RESPIRATORY: Denies cough. Denies dyspnea. GASTROINTESTINAL: Denies abdominal pain, nausea, vomiting, diarrhea SKIN: Denies rash or itching. MUSCULOSKELETAL: Denies myalgia. NEUROLOGIC: Reports headache. All systems reviewed & are unremarkable except as noted in HPI and below PMFSH Past Medical History Medical History Asthma Surgical History Surgical History History of section Social History Social History Smoking status: Never smoker Comments At time of signature, agree with nursing past medical, surgical, social and family history. There is no relevant family history pertinent to the presenting complaint Exam Narrative: GENERAL: Well-appearing, well-nourished, and in no acute distress. HEAD: Normocephalic EYES: PERRLA, conjunctivae clear ENT: Nares clear. Mucous membranes moist. TM pearly medina with sharp light reflex bilaterally; no tragal tenderness. Oropharynx not erythematous without lesions. Tonsils not enlarged and without exudate, no drooling, no hoarseness, no trismus, uvula midline. NECK: Supple. No lymphadenopathy CHEST: Clear to auscultation, breath sounds equal. No wheezing, rhonchi, rales, or stridor. No respiratory distress, speaks in full sentences. HEART: Regular rate and rhythm. No murmur heard. SKIN: Warm, dry, no rash. NEURO: Alert and oriented x3. PSYCH: Normal mood and affect Course Course Emergency Course: Patient is aware of diagnosis, understands and agrees to treatment plan. Anticipatory guidance given. Patient agrees to follow-up as directed and is aware of reasons to seek care at the emergency department. Portions of this record may have been created with voice recognition software Level of Care: Express Care Visit Vital Signs Vital signs: Reviewed. MDM - URI/Sore Throat MDM Narrative Medical decision making narrative: Differential diagnosis considered: Martin virus, strep pharyngitis, allergic rhinitis, upper respiratory tract infection, sinusitis, rhinosinusitis, nasopharyngitis. viral pharyngitis, otitis media, otitis externa, pneumonia, bronchitis, viral cough syndrome, viral syndrome, and influenza. Exam findings show no acute concerns or changes; patient is non-toxic appearing and is in no distress. Patient is appropriate for outpatient treatment and follow-up. Lab Data Attestation: I reviewed the patient's lab results. Critical Care Time Critical Care Time Critical Care Time: No Discharge Plan Discharge Clinical Impression: Influenza-like illness
[2023-05-10 13:39] VITALS: BP 131/93; PULSE 90; RESP 16; TEMP 37.1; O2SAT 100
[2023-05-10 13:40] VITALS: BP 131/93; PULSE 90; RESP 16; TEMP 37.1; O2SAT 100
== END 2023-05-10 14:10 | disposition home or self-care (01) ==
PROVIDERS: Emergency Provider Nurse Practitioner
DX: J11.1 Influenza due to unidentified influenza virus with other respiratory manifestations (principal); Z20.822 Contact with and (suspected) exposure to COVID-19; J45.909 Unspecified asthma, uncomplicated
CPT/HCPCS: 87426; 87804; 99213; C9803; G0463

== ENCOUNTER 2023-07-10 17:06 | Emergency (ER) | payer OTHER, SELFPAY ==
[2023-07-10 17:21] VITALS: BP 131/88; PULSE 89; RESP 16; TEMP 36.3; O2SAT 100
--- NOTE | 2023-07-10 17:34 | ED.URI ---
HPI - URI/Sore Throat General Chief Complaint: Upper Respiratory Infection Stated Complaint: Headache and Stomach Pain Time Seen by Provider: 07/10/23 17:19 Source: patient and RN notes reviewed Mode of arrival: ambulatory Limitations: no limitations History of Present Illness HPI Narrative: Patient presents today complaining of headache, congestion, nausea. Symptoms began this morning. Denies fever or cough. States she was exposed to COVID-19 3 days ago. She has been taking cold and flu medicine some mild relief. History of asthma for which she uses an albuterol inhaler occasionally. Related Data Allergies Allergy/AdvReac Type Severity Reaction Status Date / Time codeine Allergy Intermediate Hives / Verified 07/10/23 17:19 Red Face Penicillins Allergy Intermediate Hives / Verified 07/10/23 17:19 Red Face Review of Systems Review of Systems: CONSTITUTIONAL: Denies body aches, fever, chills, or sweats. EYES: Denies visual changes, redness, or discharge. ENT: Denies rhinorrhea, sore throat, or otalgia.+ congestion CARDIOVASCULAR: Denies chest pain, palpitations, or edema. RESPIRATORY: Denies cough or dyspnea. GASTROINTESTINAL: Denies abdominal pain, vomiting, or diarrhea.+ nausea GENITOURINARY: Denies dysuria or hematuria. SKIN: Denies rash, itching, or wounds. MUSCULOSKELETAL: Denies back pain, joint pain, or myalgia. NEUROLOGIC: Denies numbness, tingling, or weakness.+ headache PSYCH: Denies depression or anxiety. PMFSH Past Medical History Medical History Asthma Surgical History Surgical History History of section Social History Social History Smoking status: Never smoker Comments At time of signature, I have reviewed and agree with nursing past medical, surgical, social and family history unless otherwise noted. Please see nursing chart for further information. There is no relevant family history pertinent to the presenting complaint Exam Narrative: GENERAL: Mildly ill-appearing, well-nourished, and in no acute distress. HEAD: Normocephalic, atraumatic. EYES: EOMI. No redness or drainage. Conjunctivae normal. ENT: Mucous membranes pink and moist. Nares clear. No rhinorrhea. TMs normal bilaterally. Throat normal. Uvula midline. NECK: Normal AROM. Supple. No lymphadenopathy. CHEST: No respiratory distress. Clear to auscultation. HEART: Regular rate and rhythm. No murmur appreciated. EXTREMITIES: Normal range of motion. No edema. SKIN: Warm, dry, no rash. Capillary refill normal. Normal skin turgor. NEURO: No focal deficits. Alert and oriented x3. Gait steady. PSYCH: Normal affect. No signs of depression or anxiety. Course Course Level of Care: Express Care Visit Vital Signs Vital signs: Vital Signs Temperature 97.4 F L 07/10/23 17:21 Pulse Rate 89 07/10/23 17:21 Respiratory Rate 16 07/10/23 17:21 Blood Pressure 131/88 07/10/23 17:21 Pulse Oximetry 100 07/10/23 17:21 Temperature 97.4 F L 07/10/23 17:21 Pulse Rate 89 07/10/23 17:21 Respiratory Rate 16 07/10/23 17:21 Blood Pressure 131/88 07/10/23 17:21 Pulse Oximetry 100 07/10/23 17:21 Reviewed MDM - URI/Sore Throat MDM Narrative Medical decision making narrative: COVID positive. Patient will be prescribed Paxlovid and Zofran. Quarantine discussed. anticipatory guidance given. Differential Diagnosis Differential diagnosis: Likely upper respiratory infection, sinusitis, viral infection, influenza and other (COVID-19) Lab Data Attestation: I reviewed the patient's lab results. Lab results narrative: COVID-19 positive. Influenza negative Critical Care Time Critical Care Time Critical Care Time: No Discharge Plan Discharge Clinical Impression: COVID-19 Patient Disposi
== END 2023-07-10 17:48 | disposition home or self-care (01) ==
PROVIDERS: Emergency Provider Nurse Practitioner
DX: U07.1 COVID-19 (principal); J45.909 Unspecified asthma, uncomplicated
CPT/HCPCS: 87426; 87804; 99213; G0463

== ENCOUNTER 2023-08-06 08:40 | Emergency (ER) | payer OTHER, SELFPAY ==
--- NOTE | 2023-08-06 08:43 | ED.URI ---
HPI - URI/Sore Throat General Chief Complaint: Upper Respiratory Infection Stated Complaint: COUGH/BACK PAIN/CHEST PAIN Time Seen by Provider: 08/06/23 08:43 Source: patient Mode of arrival: ambulatory Limitations: no limitations History of Present Illness HPI Narrative: 28-year-old female with history of asthma presents with complaint of cough, nasal congestion, fatigue, low-grade fever the past 3 days. Afebrile at [facility]. Patient taking [id number] cough medication to treat symptoms. States that asthma is aggravated, using albuterol inhaler but not helping. Ran out of to being for her neb machine. Went to pharmacy for new tubing but was told she needed a prescription. Patient reports chest tightness with coughing. Denies nausea vomiting diarrhea. Systems reviewed and negative except as noted. Related Data Home Medications Medication Instructions Recorded Confirmed albuterol 90 mcg/actuation aerosol mcg inhalation 08/06/23 inhaler Allergies Allergy/AdvReac Type Severity Reaction Status Date / Time codeine Allergy Intermediate Hives / Verified 07/10/23 17:19 Red Face Penicillins Allergy Intermediate Hives / Verified 07/10/23 17:19 Red Face Review of Systems Review of Systems: CONSTITUTIONAL: Reports fever, chills, or sweats. Reports fatigue. EYES: Denies visual changes, redness, or discharge. ENT: Reports rhinorrhea, congestion. Denies sore throat, or otalgia. CARDIOVASCULAR: Denies chest pain, palpitations, or edema. RESPIRATORY: Reports cough and dyspnea with exertion. GASTROINTESTINAL: Denies abdominal pain, nausea, vomiting, or diarrhea. GENITOURINARY: Denies dysuria or hematuria. SKIN: Denies rash or itching. MUSCULOSKELETAL: Denies back pain, joint pain, or myalgia. NEUROLOGIC: Denies headache, numbness, or weakness. PSYCHIATRIC: Denies anxiety or depression. All other systems reviewed are negative, except as documented in HPI. [facility] Past Medical History Medical History Asthma Surgical History Surgical History History of section Social History Social History Smoking status: Never smoker Comments At time of signature, agree with nursing past medical, surgical, social and family history. There is no relevant family history pertinent to the presenting complaint. Exam Narrative: GENERAL: This is a well-nourished, well-developed patient, ill-appearing but no acute distress. HEAD: normocephalic, atraumatic. EYES: PERRL. Sclera clear/white. Vision is grossly intact. EARS: External ears normal, auditory canals clear and without drainage, TMs normal without perforation. Hearing grossly intact. NOSE: External nose normal with mild congestion with clear nasal drainage. THROAT: Mucous membranes moist, erythema to posterior pharynx with postnasal drainage. NECK: Neck supple, non-tender without lymphadenopathy, masses or thyromegaly. CARDIOVASCULAR: Regular rate and rhythm without murmurs, gallops, or rubs. RESPIRATORY: Mild expiratory wheeze to lower lung purvis otherwise clear breath sounds equal bilaterally. No rales, or rhonchi. SKIN: warm, Dry, intact with no suspicious lesions or rash, good texture and turgor. NEURO: awake, alert, and oriented to person, place and time. There were no obvious focal neurologic abnormalities. EXTREMITIES: No joint tenderness, effusion, or edema noted. Course Course Level of Care: Express Care Visit Vital Signs Vital signs: Vital Signs Temperature 36.8 C 08/06/23 08:50 Pulse Rate 104 H 08/06/23 08:50 Respiratory Rate 18 08/06/23 08:50 Blood Pressure 125/99 H 08/06/23 08:50 Pulse Oximetry 100 08/06/23 08:50 Oxygen Delivery Room Air 08/06/23 08:50 Temperature 36.8 C 08/06/23 08:50 Pulse Rate 104 H
[2023-08-06 08:50] VITALS: BP 125/99; PULSE 104; RESP 18; TEMP 36.8; O2SAT 100
== END 2023-08-06 09:35 | disposition home or self-care (01) ==
PROVIDERS: Emergency Provider Nurse Practitioner Family
DX: J10.1 Influenza due to other identified influenza virus with other respiratory manifestations (principal); J45.901 Unspecified asthma with (acute) exacerbation
CPT/HCPCS: 87081; 87426; 87804; 87880; 94640; 99213; G0463

== ENCOUNTER 2023-10-28 09:24 | Emergency (ER) | payer OTHER, SELFPAY ==
--- NOTE | ~2023-10-28 | XR_ITS ---
EXAMINATION: XR knee RT 3V DATE: 10/28/2023 09:56 INDICATION: Right knee pain and swelling TECHNIQUE: Weight bearing anteroposterior, sunrise, and flexed lateral views of the right knee were o btained COMPARISON: None. FINDINGS: Alignment is normal. No fracture. Joint spaces are normal with no erosions or osteophytosis. Small b one island at the medial femoral condyle. Soft tissues are unremarkable. No knee joint effusion. IMPRESSION: 1. Negative right knee radiographs. Reviewed, dictated and finalized at location A.
[2023-10-28 09:34] VITALS: BP 127/77; PULSE 84; RESP 16; TEMP 36.7; O2SAT 100
--- NOTE | 2023-10-28 09:43 | ED.LOWEXIN ---
HPI - Extremity Injury (Lower) General Chief Complaint: Extremity Injury, Lower Stated Complaint: Right Knee Pain Time Seen by Provider: 10/28/23 09:43 Source: patient Mode of arrival: ambulatory Limitations: no limitations History of Present Illness HPI Narrative: 28 yo F presents with c/o R knee pain for 2 days. Was looking in her coin bag and thinks she turned wrong causing knee pain. Pain worse with ambulatory. requesting x-ray. All systems reviewed and negative except as noted above. Related Data Home Medications Medication Instructions Recorded Confirmed No Home Medications 10/28/23 10/28/23 Allergies Allergy/AdvReac Type Severity Reaction Status Date / Time codeine Allergy Intermediate Hives / Verified 10/28/23 09:31 Red Face Penicillins Allergy Intermediate Hives / Verified 10/28/23 09:31 Red Face Review of Systems Review of Systems: CONSTITUTIONAL: Denies fever, chills, or sweats. EYES: Denies visual changes, redness, or discharge. ENT: Denies rhinorrhea, congestion, sore throat, or otalgia. CARDIOVASCULAR: Denies chest pain, palpitations, or edema. RESPIRATORY: Denies cough or dyspnea. GASTROINTESTINAL: Denies abdominal pain, nausea, vomiting, or diarrhea. GENITOURINARY: Denies dysuria or hematuria. SKIN: Denies rash or itching. MUSCULOSKELETAL: Denies back pain or myalgia. Reports right knee pain. NEUROLOGIC: Denies headache, numbness, or weakness. PSYCHIATRIC: Denies anxiety or depression. All other systems reviewed are negative, except as documented in HPI. PMFSH Past Medical History Medical History Asthma Surgical History Surgical History History of section Social History Social History Smoking status: Never smoker Comments At time of signature, agree with nursing past medical, surgical, social and family history. There is no relevant family history pertinent to the presenting complaint. Exam Narrative: GENERAL: This is a well-nourished, well-developed patient, in no apparent distress. HEAD: normocephalic, atraumatic. EYES: PERRL. Sclera clear/white. Vision is grossly intact. EARS: External ears normal NOSE: External nose normal NECK: Neck supple, non-tender without lymphadenopathy, masses or thyromegaly. CARDIOVASCULAR: Regular rate and rhythm without murmurs, gallops, or rubs. RESPIRATORY: Clear to auscultation. Breath sounds equal bilaterally. No wheezes, rales, or rhonchi. SKIN: warm, Dry, intact with no suspicious lesions or rash, good texture and turgor. NEURO: awake, alert, and oriented to person, place and time. There were no obvious focal neurologic abnormalities. EXTREMITIES: tenderness to medial aspect R knee. mild swelling. normal ROM. negative anterior, posterior drawer testing Course Course Level of Care: Express Care Visit Vital Signs Vital signs: Vital Signs Temperature 36.7 C 10/28/23 09:34 Pulse Rate 84 10/28/23 09:34 Respiratory Rate 16 10/28/23 09:34 Blood Pressure 127/77 10/28/23 09:34 Pulse Oximetry 100 10/28/23 09:34 Temperature 36.7 C 10/28/23 09:34 Pulse Rate 84 10/28/23 09:34 Respiratory Rate 16 10/28/23 09:34 Blood Pressure 127/77 10/28/23 09:34 Pulse Oximetry 100 10/28/23 09:34 Reviewed MDM - Extremity Injury (Lower) MDM Narrative Medical decision making narrative: Patient is aware of diagnosis, understands and agrees to treatment plan. Anticipatory guidance given. Patient agrees to follow-up as directed and is aware of reasons to seek care at the emergency department. Portions of this record may have been created with voice recognition software Discussed x-ray results with patient. X-ray is normal. Recommend ibuprofen or Tylenol to treat pain. Rest, elevation, ice. See primary care p
== END 2023-10-28 10:24 | disposition home or self-care (01) ==
PROVIDERS: Emergency Provider Nurse Practitioner Family
DX: S86.911A Strain of unspecified muscle(s) and tendon(s) at lower leg level, right leg, initial encounter (principal); X50.9XXA Other and unspecified overexertion or strenuous movements or postures, initial encounter; J45.909 Unspecified asthma, uncomplicated
CPT/HCPCS: 73562; 99213; G0463

== ENCOUNTER 2024-01-16 10:54 | Emergency (ER) | payer OTHER, SELFPAY ==
[2024-01-16 11:07] VITALS: BP 155/134; PULSE 85; RESP 20; TEMP 36.4; O2SAT 99
--- NOTE | 2024-01-16 12:26 | ED.GENADULT ---
[facility] - General Adult General Chief complaint: Extremity Injury, Upper Stated complaint: right index finger swelling Time Seen by Provider: 01/16/24 11:01 Source: patient Mode of arrival: ambulatory Limitations: no limitations History of Present Illness HPI narrative: This is a 28-year-old female who presents to the ED for chief complaint of right index finger swelling for the past couple of days. Reports that there is to for occult he with range of motion pain. Reports the pain is most concentrated at the distal end of the finger. 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 Denies fevers, chills, drainage, numbness, weakness. Related Data Allergies Allergy/AdvReac Type Severity Reaction Status Date / Time codeine Allergy Intermediate Hives / Verified 01/16/24 11:10 Red Face Penicillins Allergy Intermediate Hives / Verified 01/16/24 11:10 Red Face Review of Systems Review of Systems: All systems as dictated in [facility] PMFSH Past Medical History Medical History Asthma Surgical History Surgical History History of section Social History Social History Smoking status: Never smoker Exam Narrative: GENERAL: Well-appearing, well-nourished, and in no acute distress. HEAD: Normocephalic, atraumatic. EYES: PERRLA and EOMI. ENT: Nares clear, no rhinorrhea or epistaxis. Mucous membranes moist. Oropharynx without tonsillar hypertrophy exudate or other lesions. NECK: Supple. No adenopathy or masses. CHEST: No respiratory distress. Clear to auscultation. No wheezes rales or rhonchi HEART: Regular rate and rhythm. No murmur heard. Normal peripheral pulses. ABDOMEN: Soft, nontender, nondistended, normal active bowel sounds. MSK: Mild swelling to the distal right index finger. There is tenderness near the nail folds. No drainage. Negative Kanavel signs SKIN: Warm, dry, no rash. NEURO: Alert and oriented x4. No focal deficits. PSYCH: Normal mood and affect. Course Vital Signs Vital signs: Vital Signs Temperature 97.6 F 01/16/24 11:07 Pulse Rate 85 01/16/24 11:07 Respiratory Rate 20 01/16/24 11:07 Blood Pressure 155/134 H 01/16/24 11:07 Pulse Oximetry 99 01/16/24 11:07 Oxygen Delivery Room Air 01/16/24 11:07 Temperature 97.6 F 01/16/24 11:07 Pulse Rate 85 01/16/24 11:07 Respiratory Rate 20 01/16/24 11:07 Blood Pressure 155/134 H 01/16/24 11:07 Pulse Oximetry 99 01/16/24 11:07 Oxygen Delivery Room Air 01/16/24 11:07 Medical Decision Making MDM Narrative Medical decision making narrative: this is a 28-year-old female who presents to the ED with chief complaint of right index finger pain and swelling near the nail. Vitals are normal. Exam show is remarkable for the above and is consistent with paronychia. Negative kanavel signs. No evidence of felon. Gentle scraping /de viktor of the nail fold with 21 gauge needle done at bedside. expressed small amount of purulent fluid. Pt will be discharged in stable condition. Return precautions given and supportive measures discussed. Pt is understanding and agreeable with plan for discharge and follow-up with PCP. Vital Signs Vital Signs: Vital Signs Temperature 97.6 F 01/16/24 11:07 Pulse Rate 85 01/16/24 11:07 Respiratory Rate 20 01/16/24 11:07 Blood Pressure 155/134 H 01/16/24 11:07 Pulse Oximetry 99 01/16/24 11:07 Oxygen Delivery Room Air 01/16/24 11:07 Temperature 97.6 F 01/16/24 11:07 Pulse Rate 85 01/16/24 11:07 Respiratory Rate 20 01/16/24 11:07 Blood Pressure 155/134 H 01/16/24 11:07 Pulse Oximetry 99 01/16/24 11:07 Oxygen Delivery Room Air 01/16/24 11:07 Discharge Plan Discharge Clinica
[2024-01-16] MEDS: ACETAMINOPHEN 500 MG TABLET 1000 MG PO (12:32)
[2024-01-16] MEDS: IBUPROFEN 400 MG TABLET 800 MG PO (12:32)
== END 2024-01-16 13:16 | disposition home or self-care (01) ==
PROVIDERS: Emergency Provider Physician Assistant
DX: L03.011 Cellulitis of right finger (principal); J45.909 Unspecified asthma, uncomplicated
CPT/HCPCS: 10060; 99283; A9270

== ENCOUNTER 2024-01-23 08:21 | Emergency (ER) | payer OTHER, SELFPAY ==
[2024-01-23 08:30] VITALS: BP 134/75; PULSE 89; RESP 15; TEMP 36.3; O2SAT 100
--- NOTE | 2024-01-23 08:30 | ED.URI ---
HPI - URI/Sore Throat General Chief Complaint: Upper Respiratory Infection Stated Complaint: Vomiting/Headache/Congestion Time Seen by Provider: 01/23/24 08:31 Source: patient and RN notes reviewed Mode of arrival: ambulatory Limitations: no limitations History of Present Illness HPI Narrative: 28-year-old female presents with complaints of a headache, nausea/vomiting, and nasal congestion for 3 days. She also complains of mild abdominal pain to both sides, decreased appetite, and constipation. She has had improvement in her symptoms, but presents to the clinic today due to needing note for work. Last emesis was today, stating she did not take Zofran. LBM 2 days ago which is abnormal for her. LMP 7/12. Rates pain 0/10. She denies any known sick contacts. She denies any shortness of breath, cough, sore throat, fevers/chills, or chest pain. Taking Mucinex for her nasal congestion and has a prescription from a previous illness for Zofran. MD elicited complaint: nasal congestion and other (Nausea/vomiting) Related Data Allergies Allergy/AdvReac Type Severity Reaction Status Date / Time codeine Allergy Intermediate Hives / Verified 01/23/24 08:26 Red Face Penicillins Allergy Intermediate Hives / Verified 01/23/24 08:26 Red Face Review of Systems Review of Systems: CONSTITUTIONAL: Endorses malaise; Denies fevers/chills EYES: Denies visual changes, redness, or discharge ENT: Reports rhinorrhea and congestion; Denies sinus pain, otalgia, sore throat CARDIOVASCULAR: Denies chest pain, palpitations, edema RESPIRATORY: Denies dyspnea or cough GASTROINTESTINAL: Reports abdominal pain, nausea, vomiting, and constipation; Denies diarrhea SKIN: Denies rash or itching NEUROLOGIC: Reports headache PMFSH Past Medical History Medical History Asthma Surgical History Surgical History History of section Social History Social History Smoking status: Never smoker Exam Narrative: GENERAL: well-appearing, nontoxic no acute distress EYES: conjunctivae clear ENT: Mucous membranes moist. TM pearly medina with dull light reflex bilaterally; no tragal tenderness Oropharynx not erythematous without lesions or exudate, no drooling, no hoarseness, no trismus, uvula midline No tripod positioning, muffled voice, soft palate or pharyngeal wall bulging NECK: Supple CHEST: Clear to auscultation, breath sounds equal. No wheezing, rhonchi, rales, or stridor. No respiratory distress, speaks in full sentences HEART: Regular rate and rhythm. No murmur heard ABDOMEN: Non-tender to palpation, normoactive bowel sounds SKIN: Warm, dry, no rash NEURO: Alert and oriented x3 PSYCH: Normal mood and affect Course Course Emergency Course: Patient is aware of diagnosis, understands and agrees to treatment plan. Anticipatory guidance given. Patient agrees to follow-up as directed and is aware of reasons to seek care at the emergency department. Portions of this record may have been created with voice recognition software Level of Care: Express Care Visit Vital Signs Vital signs: Vital Signs Temperature 97.3 F L 01/23/24 08:30 Pulse Rate 89 01/23/24 08:30 Respiratory Rate 15 01/23/24 08:30 Blood Pressure 134/75 01/23/24 08:30 Pulse Oximetry 100 01/23/24 08:30 Oxygen Delivery Room Air 01/23/24 08:30 Temperature 97.3 F L 01/23/24 08:30 Pulse Rate 89 01/23/24 08:30 Respiratory Rate 15 01/23/24 08:30 Blood Pressure 134/75 01/23/24 08:30 Pulse Oximetry 100 01/23/24 08:30 Oxygen Delivery Room Air 01/23/24 08:30 reviewed MDM - URI/Sore Throat MDM Narrative Medical decision making narrative: Discussed physical exam findings, negative Covid and flu, negative urine preg. Requested refill on albuterol inhaler. Advised supportive
[2024-01-23 08:50] LABS: EDINFLUASCREEN Negative; EDINFLUBSCREEN Negative
[2024-01-23 08:56] LABS: BEDSIDEPREGUCG Negative
== END 2024-01-23 09:03 | disposition home or self-care (01) ==
PROVIDERS: Emergency Provider Nurse Practitioner Family
DX: B34.9 Viral infection, unspecified (principal); Z20.822 Contact with and (suspected) exposure to COVID-19; J45.909 Unspecified asthma, uncomplicated
CPT/HCPCS: 81025; 87426; 87804; 99213; G0463

== ENCOUNTER 2024-03-11 17:03 | Emergency (ER) | payer OTHER, SELFPAY ==
[2024-03-11 17:07] VITALS: BP 128/98; PULSE 113; RESP 20; TEMP 36.6; O2SAT 99
--- NOTE | 2024-03-11 17:52 | ED.PSYCH ---
HPI - Psych General Chief Complaint: Psychiatric Symptoms Stated Complaint: SI Time Seen by Provider: 03/11/24 17:41 Source: patient Mode of arrival: ambulatory Limitations: no limitations History of Present Illness HPI Narrative: This is a 28 year old female that presents to the ER for suicidal ideation. Reports she has been having thoughts of harming herself lately. Reports previous self harm and psychiatric hospitalization. Reports she has history of anxiety and depression, but does not currently take any medications for this. Reports she has not been able to get in to see a counselor. Denies homicidal ideation or hallucinations. Related Data Allergies Allergy/AdvReac Type Severity Reaction Status Date / Time codeine Allergy Intermediate Hives / Verified 01/23/24 08:26 Red Face Penicillins Allergy Intermediate Hives / Verified 01/23/24 08:26 Red Face Review of Systems Review of Systems: CONSTITUTIONAL: Denies fever PSYCHIATRIC: Reports anxiety and depression. All systems reviewed & are unremarkable except as noted in HPI and below PMFSH Past Medical History Medical History Asthma Surgical History Surgical History History of section Social History Social History Smoking status: Never smoker Substance use type: marijuana Exam Narrative: GENERAL: Well-appearing, well-nourished, and in no acute distress. HEAD: Normocephalic, atraumatic. EYES: EOMI. CHEST: No respiratory distress. HEART: Regular rate EXTREMITIES: Normal range of motion. No edema. SKIN: Warm, dry, no rash. NEURO: No focal deficits. Alert and oriented x3. PSYCH: Flat mood and affect Course Course Emergency Course: Patient is medically cleared for evaluation by crisis Consultations Consultation #1: Safety plan is in place. Patient will be given follow up appointment today for counseling Vital Signs Vital signs: Vital Signs Temperature 97.8 F 03/11/24 17:07 Pulse Rate 113 H 03/11/24 17:07 Respiratory Rate 20 03/11/24 17:07 Blood Pressure 128/98 H 03/11/24 17:07 Pulse Oximetry 99 03/11/24 17:07 Oxygen Delivery Room Air 03/11/24 17:07 Temperature 98 F 03/12/24 00:37 Pulse Rate 72 03/12/24 00:37 Respiratory Rate 15 03/12/24 00:37 Blood Pressure 133/79 03/12/24 00:37 Pulse Oximetry 100 03/12/24 00:37 Oxygen Delivery Room Air 03/11/24 17:07 MDM - Psych MDM Narrative Medical decision making narrative: patient presents to the emergency department for suicidal ideations. History of previous self-harm. Reports depression and anxiety. Reports she is not currently taking any medications for this and is not have a counselor. Patient's hemoglobin is stable. Metabolic panel with some evidence of dehydration. Patient hydrated with a L of IV fluids in the ED. She is tolerating PO intake. Urine without evidence of infection. test is negative. Drug screen positive for cannabinoids. Alcohol level is 174. Repeat is now 18. She is medically cleared for evaluation by crisis Differential Diagnosis Differential diagnosis: Likely acute psychosis, suicidal ideation, bipolar disorder, depression and acute anxiety Lab Data Attestation: I reviewed the patient's lab results. 03/11/24 18:06 03/12/24 03:08 Labs: Lab Results 03/11/24 03/11/24 03/11/24 Range/Units 18:04 18:06 18:13 WBC 6.1 (4.5-10.0) K/mm3 RBC 4.22 (4.2-5.4) M/mm3 Hgb 10.4 L (12.0-15.0) g/dL Hct 32.7 L (37.0-47.0) % MCV 77.5 L (80-100) fl MCH 24.6 L (26-34) pg MCHC 31.8 L (32-36) g/dl RDW 17.0 H (11.5-14.5) % Plt Count 318 (150-375) k/mm3 MPV 10.1 (7.4-10.4) fl Immature Gran % (Auto) 0.2 (0-0.5) % Neut % (Auto) 47.5 (45.5-73.1) % Lymph % (Aut
[2024-03-11 18:38] LABS: BEDSIDEPREGUCG Negative (Negative)
[2024-03-11 18:39] LABS: Basophils Percent Auto 0.5 % (0.2-1.2); Eosinophils Absolute Auto 0.1 K/mm3 (0-0.3); Hematocrit 32.7 % (37.0-47.0); Hemoglobin 10.4 g/dL (12.0-15.0); Immature Granulocyte Absolute 0.01 K/mm3 (0.00-0.031); Immature Granulocyte Percent A 0.2 % (0-0.5); Lymphocytes Absolute Auto 2.64 K/mm3 (0.9-3.2); Mean Corpuscular HGB Conc 31.8 g/dl (32-36); Mean Corpuscular Hemoglobin 24.6 pg (26-34); Mean Corpuscular Volume 77.5 fl (80-100); Mean Platelet Volume 10.1 fl (7.4-10.4); Monocytes Absolute Auto 0.5 K/mm3 (0.1-0.6); Monocytes Percent Auto 7.8 % (2.6-8.5); Neutrophils Absolute Auto 2.9 K/mm3 (1.3-6.7); Neutrophils Percent Auto 47.5 % (45.5-73.1); Platelet Count Result 318 k/mm3 (150-375); Red Blood Count 4.22 M/mm3 (4.2-5.4); White Blood Count 6.1 K/mm3 (4.5-10.0)
[2024-03-11 18:48] LABS: Add Urine Microscopic? YES; Appearance Urine Cloudy (Clear); Bacteria Urine 1+ /hpf; Bilirubin Urine Negative (Negative); Blood Urine Negative (Negative); Color Urine Yellow (Yellow); Glucose Urine UA Negative (Negative); Ketones Urine Trace mg/dL (Negative); Leukocyte Esterase Ur Negative LEU/UL (Negative); Nitrate Urine Negative (Negative); Non Pathogenic Casts 0-2; Protein Urine 1+ mg/dL (Negative); RBC Urine 0-2 /hpf (0-2); Specific Grav Ur 1.036 (1.001-1.035); Squamous Epithelial Cell Urine Few /hpf (Few); WBC Urine 0-5 /hpf (0-3); pH Urine 5.5 (5.0-9.0)
[2024-03-11 18:58] LABS: Ethanol 174 mg/dL (<10)
[2024-03-11 18:59] LABS: Amphetamine Screen Urine Negative (Negative); Barbiturate Screen Urine Negative (Negative); Benzodiazepines Screen Urine Negative (Negative); Cannabinoid Screen Urine Positive (Negative); Cocaine Screen Urine Negative (Negative); Methadone Screen Urine Negative (Negative); Opiate Screen Urine Negative (Negative); Phencyclidine Screen Urine Negative (Negative)
[2024-03-11 18:59] LABS: Anion Gap 15 mmol/L (4-12); Carbon Dioxide 18 mmol/L (22-30); Chloride 109 mmol/L (98-107); Potassium 3.7 mmol/L (3.4-5.0); Sodium 142 mmol/L (137-145)
[2024-03-11 19:00] LABS: Alanine Aminotransferase 61 U/L (6-35); Albumin Level 4.5 g/dL (3.5-5.1); Alkaline Phosphatase 77 U/L (38-126); Aspartate Amino Transferase 71 U/L (14-36); Bilirubin,Total 0.3 mg/dL (0.2-1.3); Blood Urea Nitrogen 11 mg/dL (7-17); Estimated CRCL calculation 79 ml/min; Estimated Glomerular Filt Rate > 60; Glucose 100 mg/dL (65-110)
[2024-03-11 19:14] LABS: Influenza A QL RT-PCR Negative (Negative); Influenza B QL RT-PCR Negative (Negative); RSV RNA, RT-PCR Negative (Negative); SARS-CoV-2 RNA PCR Negative (Negative)
[2024-03-11 19:43] LABS: Acetaminophen < 10 ug/mL (10-30); Salicylate < 1.0 mg/dL (2-20)
[2024-03-11] MEDS: SODIUM CHLORIDE 0.9% IV 1,000 ML 999 ML IV CONT (19:56)
[2024-03-11] MEDS: LORazepam (*CRX) 0.5 MG TABLET PO (19:57)
[2024-03-12 00:01] LABS: Ethanol 18 mg/dL (<10)
[2024-03-12 00:37] VITALS: BP 133/79; PULSE 72; RESP 15; TEMP 36.6; O2SAT 100
[2024-03-12 03:24] LABS: Anion Gap 7 mmol/L (4-12); Blood Urea Nitrogen 11 mg/dL (7-17); Calcium 8.6 mg/dL (8.4-10.2); Carbon Dioxide 21 mmol/L (22-30); Chloride 108 mmol/L (98-107); Estimated CRCL calculation 97 ml/min; Estimated Glomerular Filt Rate > 60; Glucose 98 mg/dL (65-110); Potassium 3.9 mmol/L (3.4-5.0); Sodium 136 mmol/L (137-145)
[2024-03-12] MEDS: FAMOTIDINE 20 MG/2 ML VIAL IV PUSH (03:31)
== END 2024-03-12 04:40 | disposition home or self-care (01) ==
PROVIDERS: Emergency Provider Physician Assistant
DX: E86.0 Dehydration (principal); F32.A Depression, unspecified; Z20.822 Contact with and (suspected) exposure to COVID-19; J45.909 Unspecified asthma, uncomplicated
CPT/HCPCS: 36415; 80048; 80053; 80307; 81001; 81025; 84443; 85025; 87637; 96361; 96374; 99284; A9270; J7030

== ENCOUNTER 2024-04-27 06:36 | Emergency (ER) | payer OTHER, SELFPAY ==
--- NOTE | ~2024-04-27 | XR_ITS ---
EXAMINATION: XR chest 2V DATE: 04/27/2024 08:07 INDICATION: Cough. TECHNIQUE: Frontal and lateral views of the chest were obtained. COMPARISON: Chest 2 views 09/21/2021, CT abdomen and pelvis 05/31/2022 FINDINGS: There are airspace opacities in left lower lobe. No pleural effusion or pneumothorax. The h eart is normal. IMPRESSION: 1. Airspace opacities in left lower lobe, consistent with atelectasis versus pneumonia. Reviewed, dictated and finalized at location B. IMPRESSION: 1. Airspace opacities in left lower lobe, consistent with atelectasis versus pn eumonia.
[2024-04-27 07:14] VITALS: BP 127/83; PULSE 88; RESP 18; TEMP 36.7; O2SAT 100
[2024-04-27 07:40] VITALS: BP 127/83; PULSE 95; RESP 18; TEMP 36.7; O2SAT 99
[2024-04-27 07:57] LABS: Influenza A QL RT-PCR Negative (Negative); Influenza B QL RT-PCR Negative (Negative); RSV RNA, RT-PCR Negative (Negative); SARS-CoV-2 RNA PCR Negative (Negative)
--- NOTE | 2024-04-27 08:20 | ED.URI ---
HPI - URI/Sore Throat General Chief Complaint: Upper Respiratory Infection Stated Complaint: upper resp Time Seen by Provider: 04/27/24 08:18 Source: patient Mode of arrival: ambulatory Limitations: no limitations History of Present Illness HPI Narrative: 29-year-old female with past medical history asthma presents with symptoms of a cough, congestion, nausea and vomiting over the past 24 hours. Her last episode of emesis was approximately 10:00 p.m. last night. She typically uses albuterol and nebulized albuterol for her asthma as needed but is out of both and in need of a medication refill. She does not have a primary care physician. She works as a [employer]ER. She has not had a fever. She did recently start semaglutide however she denies any recent antibiotics. 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 HEAD: Normocephalic, atraumatic. EYES: Non injected, non icteric ENT: Nares clear, no rhinorrhea or epistaxis. NECK: Supple. CHEST: Speaking in full sentences. No respiratory distress. Nonlabored. No accessory muscle usage. Lungs are clear to auscultation bilaterally without appreciable wheezes or crackles nor appreciable focal consolidation. HEART: Regular rate and rhythm. . ABDOMEN: Soft, nondistended. EXTREMITIES: Normal range of motion. No lower extremity edema. SKIN: Warm, dry, no rash. NEURO: No focal deficits. Alert and oriented x3. PSYCH: Normal mood and affect. Course Vital Signs Vital signs: Vital Signs Temperature 98.1 F 04/27/24 07:14 Pulse Rate 88 04/27/24 07:14 Respiratory Rate 18 04/27/24 07:14 Blood Pressure 127/83 04/27/24 07:14 Pulse Oximetry 100 04/27/24 07:14 Temperature 98.1 F 04/27/24 07:40 Pulse Rate 95 04/27/24 07:40 Respiratory Rate 18 04/27/24 07:40 Blood Pressure 127/83 04/27/24 07:40 Pulse Oximetry 99 04/27/24 07:40 Oxygen Delivery Room Air 04/27/24 07:40 MDM - URI/Sore Throat MDM Narrative Medical decision making narrative: Patient presents with signs and symptoms of respiratory infection. She has underlying asthma and is out of her albuterol formulations. In the emergency department they are afebrile with vital signs within normal limits. No Acute intrathoracic process on my independent interpretation of chest x-ray however radiologist does call atelectasis versus pneumonia in the left lower lobe on their review. Out of an abundance of precaution, will treat as a pneumonia for this reason. Suspect/probable simple pneumonia [versus complex = aspiration, gram negative, staphylococcal, legionnaire's, TB, fungal, empyema, abscess] DRIP Score - predicts risk for CAP d/t drug-resistant pathogens Antibiotic use within 60 days (No 0, Yes +2): 0 terminal gauger care resident (No 0, Yes +2):0 Tube feeding (No 0, Yes +2)0 Prior drug-resistant pneumonia Dx within 1 year (No 0, Yes +2)0 Hospitalization within 60 days (No 0, Yes +1):0 Chronic pulmonary disease (No 0, Yes +1):1 Poor functional status (No 0, Yes +1):0 H2 malcolm or PPI within 14 days (No 0, Yes +1):0 Active wound care at time of admission (No 0, Yes +1):0 MRSA colonization within 1 year (No 0, Yes +1):0 1Total: Outpatient score <4 will prescribe doxycycline. Patient given 1st dose in the emergency department with the rest of the course prescribed. Will also provide refills for her albuterol inhaler and nebulized solution And give a referral for primary care physician as she does not have 1. Patient provided work note. Also provided prescription for Zofran. Discharged home in stable condition. Feels comfortable with the plan. All questions answered. Differential Diagnosis Differential diagnosis: Likely upper respiratory infection, viral infection, bronchitis, influenza and other ( Pneumonia, asthma exacerbation) Lab Data Attestation: I reviewed the patient's lab results. Labs: Lab Results 04/27/24 Range/Units 07:16 Influenza A (RT-PCR) Negative (Negative) Influenza B (RT-PCR) Negative (Negative) RSV (RT-PCR) Negative (Negative) SARS-CoV-2 RNA (RT-PCR) Negative (Negative) Imaging Data Attestation: I personally reviewed and interpreted this imaging study as follows: My impression: No Acute intrathoracic process on my independent interpretation of chest x-ray Radiologist's impression: Impressions Chest X-Ray 04/27/24 08:10 IMPRESSION: 1. Airspace opacities in left lower lobe, consistent with atelectasis versus pneumonia. Discharge Plan Discharge Clinical Impression: Acute respiratory infection, Encounter for medication refill Patient Disposition: Home, Self-Care Condition: Stable Instructions: Antibiotic Form, Acute Nausea and Vomiting (DC), Viral Syndrome (ED), Acute Cough (ED), Community Acquired Pneumonia (DC) Additional Instructions: As we discussed, you tested negative for COVID, influenza a, influenza B, and RSV. There is concern for possible pneumonia on her chest x-ray so we are starting antibiotics. You received the 1st dose of antibiotic in the emergency department with the rest of the course prescribed. Your albuterol inhaler and nebulized solution is also being prescribed. You can follow-up with the physician below given the you do not have a primary care physician. You can also use the oral disintegrating tablets of Zofran if needed for nausea and vomiting. Return to the emergency department with any new or worsening symptoms. Rest and maintain your hydration. Prescriptions: New albuterol sulfate 90 mcg/actuation HFA aerosol inhaler 1 inh inhalation QID PRN (Reason: shortness of breath or wheezing) Qty: 6.7 0RF albuterol sulfate 0.63 mg/3 mL solution for nebulization 0.63 mg inhalation Q6H Qty: 75 0RF doxycycline hyclate 100 mg capsule 100 mg PO BID 5 Days Qty: 9 0RF Rx Instructions: Patient received 1st dose in the emergency department 04/27/2024 a.m. ondansetron 4 mg tablet,disintegrating 4 mg PO Q8H PRN (Reason: nausea and vomiting) Qty: 7 0RF No Action albuterol sulfate 90 mcg/actuation HFA aerosol inhaler 2 inh inhalation QID PRN (Reason: shortness of breath or wheezing) Qty: 8.5 0RF Follow-up/Referrals: PHYSICIAN,GARAGE CONSTRUCTION EQUIPMENT MECHANIC [Non-Staff] - Jimmie Montano DO [Physician] - ( internal medicine) Stand Alone Forms: Work/School Release IP Time of Disposition: 08:37
[2024-04-27] MEDS: DOXYCYCLINE HYCLATE 100 MG TABLET PO (08:45)
[2024-04-27 09:06] VITALS: BP 127/77; PULSE 81; RESP 18; O2SAT 100
== END 2024-04-27 09:08 | disposition home or self-care (01) ==
PROVIDERS: Emergency Medicine; Emergency Provider Student in an Organized Health Care Education/Training Program
DX: J45.909 Unspecified asthma, uncomplicated (principal); Z76.0 Encounter for issue of repeat prescription; J22 Unspecified acute lower respiratory infection; Z20.822 Contact with and (suspected) exposure to COVID-19
CPT/HCPCS: 71046; 87637; 99283; A9270

== ENCOUNTER 2024-12-20 08:28 | Emergency (ER) | payer OTHER, SELFPAY ==
--- NOTE | 2024-12-20 08:38 | ED_ITS ---
HPI - Wound/Laceration General Chief Complaint: Wound/Laceration Stated Complaint: Cut Finger Time Seen by Provider: 12/20/24 08:29 Source: patient Mode of arrival: ambulatory Limitations: no limitations History of Present Illness HPI narrative: Patient is a 29 year old female who presents to the clinic with a cut to her left index finger. She states that she cut her finger with a knife while cutting onions last night around 5:30. She is unsure if her tetanus is up to date. Denies any warmth or redness to the site of infection, chills, fevers, body aches. Related Data Allergies Allergy/AdvReac Type Severity Reaction Status Date / Time codeine Allergy Intermediate Hives / Verified 12/20/24 08:39 Red Face Penicillins Allergy Intermediate Hives / Verified 12/20/24 08:39 Red Face Review of Systems Review of Systems: CONSTITUTIONAL: Denies body aches, fever, chills, or sweats. EYES: Denies visual changes, redness, or discharge. ENT: Denies rhinorrhea, congestion CARDIOVASCULAR: Denies chest pain, palpitations, or edema. RESPIRATORY: Denies cough or dyspnea. GASTROINTESTINAL: Denies abdominal pain, nausea, vomiting, or diarrhea. SKIN: ?Reports a cut to her left index finger. MUSCULOSKELETAL: Denies back pain, joint pain, or myalgia. NEUROLOGIC: Denies headache, numbness, tingling, or weakness. 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 Please see nursing chart for further information. There is no relevant family history pertinent to the presenting complaint. Exam Narrative: GENERAL: Well-appearing HEAD: Normocephalic, atraumatic. EYES: ?conjunctivae clear, and EOMI. ENT: Mucous membranes moist. Oropharynx without edema, erythema or lesions. NECK: Supple. No lymphadenopathy CHEST: Clear to auscultation. HEART: Regular rate and rhythm. SKIN: Warm, dry. ?0.5 cm laceration noted to left index. Well approximated. No drainage, erythema, or warmth noted. NEURO: ?Alert and oriented x3.? Course Course Level of Care: Express Care Visit Vital Signs Vital signs: Vital Signs Temperature 36.5 C 12/20/24 08:39 Pulse Rate 81 12/20/24 08:39 Respiratory Rate 16 12/20/24 08:39 Blood Pressure 138/90 12/20/24 08:39 Pulse Oximetry 100 12/20/24 08:39 Temperature 36.5 C 12/20/24 08:39 Pulse Rate 81 12/20/24 08:39 Respiratory Rate 16 12/20/24 08:39 Blood Pressure 138/90 12/20/24 08:39 Pulse Oximetry 100 12/20/24 08:39 Reviewed MDM - Wound/Laceration MDM Narrative Medical decision making narrative: Discussed physical exam findings. Tetanus updated. Triple antibiotic ointment and bandaid applied. Advised supportive measures and signs/symptoms to go to the ER. Pt is appropriate for outpatient treatment and follow up. Differential Diagnosis Differential diagnosis: Likely laceration and abrasion Critical Care Time Critical Care Time Critical Care Time: No Discharge Plan Discharge Clinical Impression: Laceration Patient Disposition: Home Condition: Stable Instructions: Antibiotic Form, Acute Wounds (DC) Additional Instructions: Keep the area clean and dry - cleanse with warm water and mild soap and allow to fully dry. Ok to apply neosporin to the site Keep it open to air (no bandages) Watch for worsening symptoms including pain, redness, swelling, streaking, pus/drainage, fever. Go to the ER with any of these symptoms or concerns. Follow up with primary care provider in 1 week as needed. Patient Language: Cambodian Prescriptions: No Action albuterol sulfate 90 mcg/actuation HFA aerosol inhaler 2 inh inhalation QID PRN (Reason: shortness of breath or wheezing) Qty: 8.5 0RF albuterol sulfate 0.63 mg/3 mL solution for nebulization 0.63 mg inhalation Q6H Qty: 75 0RF Follow-up/Referrals: PHYSICIAN,DIRECTOR PRISON [Primary Care Provider] - Stand Alone Forms: Work/School Release IP Time of Disposition: 08:44
[2024-12-20 08:39] VITALS: BP 138/90; PULSE 81; RESP 16; TEMP 36.5; O2SAT 100
[2024-12-20] MEDS: TETANUS,DIPHTHERIA,AC PERTUSSIS ADULT (0.5 ML) BOOSTRIX IM (08:51)
== END 2024-12-20 09:05 | disposition home or self-care (01) ==
PROVIDERS: Emergency Provider Nurse Practitioner Family
DX: S61.211A Laceration without foreign body of left index finger without damage to nail, initial encounter (principal); W26.0XXA Contact with knife, initial encounter; Y93.G1 Activity, food preparation and clean up; Z23 Encounter for immunization; J45.909 Unspecified asthma, uncomplicated; F12.90 Cannabis use, unspecified, uncomplicated
CPT/HCPCS: 90471; 90715; 99212; G0463

== ENCOUNTER 2025-02-14 09:31 | Outpatient (CLI) | payer OTHER, SELFPAY ==
--- NOTE | ~2025-02-14 | MR_ITS ---
MRI of the brain Clinical History: Retrobulbar neuritis Technique: Axial and sagittal T1-weighted images were acquired. These were followed by axial T2-weighted, diffusion weighted, gradient, and FLAIR images. Following intravenous administration of 17 cc MultiHance gadolinium, T1-weighted fat-sat imaging was performed in the axial and coronal planes. Findings: No abnormal signal seen in the brain parenchyma. No acute infarct, intracranial hemorrhage or mass lesion. Ventricles and subarachnoid spaces are unremarkable. Orbits are unremarkable. Paranasal sinuses and mastoid air cells are clear. Major intracranial flow voids are intact. Sagittal midline structures are intact. No abnormal postcontrast enhancement identified. IMPRESSION: Normal exam. Reviewed, dictated and finalized at location . IMPRESSION: Normal exam.
--- OUTSIDE RECORDS SUMMARY | 2025-02-14 10:00 | XMS_ITS | Clinical Summary ---
Author Organization [facility] [address] Address [address] [place] [address] Care Team Providers Care Highway Inspector Name Role Phone No, Physician Primary Care Provider [phone] Allergies Active Allergy Reactions Criticality Noted Date Comments Codeine Rash Medium 07/02/2015 Penicillins Rash Medium 07/02/2015 Medications albuterol HFA (PROVENTIL HFA,VENTOLIN HFA,PROAIR HFA) 90 mcg/actuation inhaler Inhale 2 puffs every 6 (six) hours as needed 6 Active Estarylla 0.25-35 mg-mcg per tablet TK 1 T PO QD 0 Active doxycycline (VIBRAMYCIN) 100 mg capsuleIndicati ons:Skin/Soft Tissue Infection Take 1 tablet/caps ule (100 mg total) by mouth 2 (two) times a day 20 capsule 5 Active naproxen (NAPROSYN) 500 mg tablet Take 1 tablet (500 mg total) by mouth 2 (two) times a day as needed for pain 30 tablet 5 Active ibuprofen (ADVIL,MOTRIN) 800 mg tablet Take 800 mg by mouth every 8 (eight) hours as needed 7 02/12/20 25 Discontinu ed(Alterna te therapy) Active Problems No known active problems Encounters Date Type Department Care Team Description 02/11/2025 2:12 AM CDT - 02/11/2025 6:26 AM CDT Emergency [address] [id number] Justin Lamar MD Laceration of right great toe without damage to nail, foreign body presence unspecified, initial encounter (Primary Dx) Discharge Disposition: Discharge to home or self care from Last 3 Months Family History Medical History Relation Name Comments Diabetes Maternal Grandmother Relation Name Status Comments Maternal Grandmother Social History Tobacco Use Types Packs/Day Years Used Date Smoking Tobacco: Never Smokeless Tobacco: Never Personal Safety Answer Date Recorded Have you ever been in or are you currently in a harmful physical or emotional relationship or is someone making you feel afraid or unsafe? 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 Gender Identity Not on file Sexual Orientation Not on file Obstetrics History Last Filed Vital Signs Vital Sign Reading Time Taken Comments Blood Pressure 115/78 02/11/2025 6:00 AM CDT Pulse 100 02/11/2025 6:00 AM CDT Temperature 36.7 C (98.1 F) 02/11/2025 2:17 AM CDT Respiratory Rate 21 02/11/2025 6:00 AM CDT Oxygen Saturation 100% 02/11/2025 6:00 AM CDT Inhaled Oxygen Concentration - - Weight 79.7 kg (175 lb 12.8 oz) 02/11/2025 2:17 AM CDT Height - - Body Mass Index - - Plan of Treatment Health Maintenance Due Date Last Done Comments Cervical Cancer Screening 1997 Depression Screening 1997 Hepatitis C Screening 1997 Varicella Vaccines (2 of 2 - 2-dose childhood series) 06/16/2009 03/24/2009 Hepatitis B Screening 2015 Regular Well Visit/Exam 18-64 2015 Pneumococcal vaccine <65 (1 of 2 - PCV) 2016 DTaP/Tdap/Td Vaccine (2 - Td or Tdap) 03/24/2019 Covid-19 Vaccine ( - season) 2024 02/13/2021, 01/05/2021, 07/29/2020 HPV Vaccines (1 - 3-dose SCDM series) 2024 Influenza Vaccine (#1) 2025 , 04/08/2010, 03/24/2009 Procedures Procedure Name Priority Date/Time Associated Diagnosis Comments ED LACERATION REPAIR Routine 02/11/2025 5:55 AM CDT XR FOOT RIGHT 3 OR MORE VIEWS ED 02/11/2025 2:40 AM CDT from Last 3 Months Results * Laceration Repair (02/11/2025 5:55 AM CDT) Narrative Amanda Ulloa NP - 02/11/2025 5:55 AM CDT Amanda Ulloa NP 02/11/2025 6:04 AM Laceration Repair Date/Time: 02/11/2025 5:55 AM Performed by: Amanda Ulloa NP Authorized by: Justin Lamar MD RN Notified of Procedure: yes Informed consent: Risks, benefits, alternatives discussed Patient's stated name/ matches armband: Yes Consent form signed, dated, timed; matches correct patient, intended procedure and site: Yes Imaging: Pertinent imaging reviewed, correctly oriented and match to patient identifiers Anesthesia method: Local infiltration Local anesthetic: Lidocaine 1% Location: Toe Toe location: R big toe Length (cm): 1 Repair type: Simple Preparation: Patient was prepped and draped in usual sterile fashion and imaging obtained to evaluate for foreign bodies Hemostasis achieved with: Direct pressure Wound exploration: wound explored through full range of motion and entire depth of wound probed and visualized Wound extent: no foreign body, no signs of injury and no nerve damage Contaminated: yes Area cleansed with: Saline and Shur-Clens Amount of cleaning: Extensive Irrigation solution: Sterile saline Irrigation method: Syringe Visualized foreign bodies/material removed: no Repair method: Sutures Suture size: 4-0 Vermilion border: poorly aligned Dressing: Non-adherent dressing Patient tolerance of procedure: Tolerated well, no immediate complications Irregular, jagged wound. Actual laceration was approximately 1 cm, avulsed area also 1 cm. Total wound area 2 cm. Approximated as well as I could given avulsed quality to wound us Justin Lamar MD IN CLINIC/BEDSIDE ORDERABL ES Final Result * XR Foot Right 3 or More Views (02/11/2025 2:40 AM CDT) Anatomical Region Laterality Modality Lower Extremities, Foot Right Computed Radiography 02/11/2025 3:10 AM CDT Narrative 02/11/2025 3:12 AM CDT EXAM DESCRIPTION: XR FOOT RIGHT 3 OR MORE VIEWS REASON FOR STUDY: Pain, Lower Extremity Injury or Trauma PT to ED for c/o laceration to her right great toe. PT states she was doing flips in the front yard when she landed on something sharp. Lac to bottom of foot, foot pressure wrapped due to bleeding. PT states she had a tetanus shot 1 month ago TECHNIQUE: Frontal, oblique, and lateral views of the right foot . COMPARISON: None FINDINGS: BONES/JOINTS: No fracture, malalignment, or suspicious osseous lesion is identified. Joint spaces are preserved. SOFT TISSUES: Unremarkable. IMPRESSION: No fracture or malalignment identified. THIS IS AN ELECTRONICALLY VERIFIED FINAL REPORT 02/11/2025 3:12 AM - Electronically signed by Errol Singh M.D. AR T: Report ID: [id number] Reading Location: [id number] Procedure Note Errol Singh MD - 02/11/2025 EXAM DESCRIPTION: XR FOOT RIGHT 3 OR MORE VIEWS REASON FOR STUDY: Pain, Lower Extremity Injury or Trauma PT to ED for c/o laceration to her right great toe. PT states she wasdoing flips in the front yard when she landed on something sharp. Lac to bottomof foot, foot pressure wrapped due to bleeding. PT states she had a tetanusshot 1 month ago TECHNIQUE: Frontal, oblique, and lateral views of the right foot . COMPARISON: None FINDINGS: BONES/JOINTS: No fracture, malalignment, or suspicious osseous lesion is identified. Joint spaces are preserved. SOFT TISSUES: Unremarkable. IMPRESSION: No fracture or malalignment identified. THIS IS AN ELECTRONICALLY VERIFIED FINAL REPORT 02/11/2025 3:12 AM - Electronically signed by Errol Singh M.D. AR T: Report ID: [id number] Reading Location: [id number] us Justin Lamar MD IMG XR PROCEDURES Final Re sult from Last 3 Months Insurance [employer] [facility] Care Teams Highway Inspector Relationship Specialty Start Date End Date No, Physician PCP - General 12/27/21
--- OUTSIDE RECORDS SUMMARY | 2025-02-14 10:01 | XMS_ITS | Clinical Summary ---
Author Organization [facility] Address [address] [place] [address] Care Team Providers Care Field Crop Technical Officer Name Role Phone Unavailable Primary Care Provider Unavailabl e Source Comments [facility],non-owned Affiliates and Associated Physician Practices is amultiple site organization consisting of ambulatory clinics and hospital sitesin [place], [place], [place] and [place]. This disclosure is being madepursuant to the Care Everywhere program and may not contain all information available regarding this patient. Last updated 18.[facility] Allergies Active Allergy Reactions Criticality Noted Date Comments Codeine Rash Low 07/02/2015 Penicillins Rash Low 07/02/2015 Medications * This document contains information received from the source organization and may not represent a complete record from that organization. * Be aware that medications may not be up to date on this document. Alwaysverify current medications with the patient. albuterol HFA (PROVENTIL;MEAGHAN TOLIN;PROAIR) 108 (90 BASE) MCG/ACT inhalerIndicat ions:Asthma, exercise induced (HCC) Inhale 2 Puffs by mouth every 6 hours as needed for Shortness of Breath or Wheezing 1 Inhaler 5 08/14/19 16 Active ibuprofen (MOTRIN) 800 MG tablet Take 1 Tab by mouth every 8 hours as needed for Pain Take with food 90 Tab 1 08/23/19 17 Active meclizine (ANTIVERT) 25 MG tablet Take 1 Tab by mouth 3 times daily as needed for Dizziness 30 Tab 11/12/19 17 Active raNITIdine (ZANTAC) 150 MG tablet Take 1 Tab by mouth once daily 30 Tab 11/12/19 17 Active pantoprazole EC (PROTONIX) 40 MG tabletIndicati ons:Gastroesop hageal Reflux Disease Take 1 tablet by mouth daily before breakfast Reasons: Gastroesophageal Reflux Disease 30 tablet 1 08/26/19 18 Active Active Problems Problem Noted Date Diagnosed Date Family history of heart dise ase in male family member before age 55 07/02/2015 Overview (07/02/2015): Paternal uncle of heart problem in his teens. Pt unaware of specifics. Denies personal Hx of cardiac Sx. EKG ok Asthma, exercise induced 07/02/2015 Family History Medical History Relation Name Comments Hypertension Maternal Grandfather Hypertension Maternal Grandmother Hypertension Mother Hypertension Paternal Grandfather Hypertension Paternal Grandmother Heart Disease Paternal Uncle in his Teens from heart problem. 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 Gender Identity Not on file Sexual Orientation Not on file Last Filed Vital Signs Vital Sign Reading Time Taken Comments Blood Pressure 108/74 12/06/2016 7:51 AM CDT Pulse 88 12/06/2016 7:51 AM CDT Temperature 36.7 C (98.1 F) 12/06/2016 7:51 AM CDT Respiratory Rate 14 12/06/2016 7:51 AM CDT Oxygen Saturation 100% 12/06/2016 7:51 AM CDT Inhaled Oxygen Concentration - - Weight 51 kg (112 lb 7 oz) 12/03/2016 3:07 PM CD T Height 160 cm (5' 3) 12/03/2016 3:07 PM CDT Body Mass Index 19.92 12/03/2016 3:07 PM CDT Plan of Treatment Health Maintenance Due Date Last Done Comments HIV SCREENING 2012 HEPATITIS C SCREENING 04/12/2015 DTAP/TDAP/TD VACCINES (1 - Tdap) 2016 HEPATITIS B VACCINE (1 of 3 - 19+ 3-dose series) 2016 COVID-19 VACCINE (2023-2 5 season) 2024 HPV VACCINE (1 - 3-dose SCDM series) 2024 DEPRESSION SCREENING 06/27/2024 INFLUENZA VACCINE (#1) 2025 ZOSTER VACCINE (1 of 2) 2047 HIB VACCINE Aged Out No longer eligi ble based on patient's age to complete this topic MENINGOCOCCAL (Group B) VACC INE SHARED DECISION-MAKING Aged Out No longer eligibl e based on patient's age to complete this topic MENINGOCOCCAL GROUPS A/C/Y/W VACCINE Aged Out No longer eligible b ased on patient's age to complete this topic PNEUMOCOCCAL VACCINE Aged Out No long er eligible based on patient's age to complete this topic Goals Goal Patient Goal Type Associated Problems Recent Progress Patient-Stated? Author Exercise 5X per week (30 min per time) Exercise No Nancy Hussein Note: The [employer] recommends all adults get a minimum of 150 minutes of moderate physical activity a week. This can be completed as 30 minutes of brisk walking on most days of the week. Even 10 minutes of exercise a day can provide benefit and will add up over the week. If able, try to take the stairs instead of the elevator or park farther away in the parking lot. Start slow and try to increase your amount of activity over several weeks. Exercise will help to improve your cholesterol readings and blood pressure and to be overall healthier. Yearly PCP visit Lifestyle No Nancy Hussein Insurance [facility] Advance Directives * Full Code (Latest Code Status on File) Date Activated Date Inactivated Comments 12/03/2016 3:54 PM 12/06/2016 1:17 PM
--- OUTSIDE RECORDS SUMMARY | 2025-02-14 10:01 | XMS_ITS | Clinical Summary ---
Author Organization [facility] Address [address] [place] [phone] Phone Care Team Providers Care Installation Superintendent Name Role Phone Unavailable Primary Care Provider Unavailabl e Social History Tobacco Use Types Packs/Day Years Used Date Smoking Tobacco: Never Assessed Comments Unknown Sex and Gender Information Value Date Recorded Sex Assigned at Not on file Legal Sex Female 3:52 PM CDT Gender Identity Not on file Sexual Orientation Not on file Plan of Treatment Health Maintenance Due Date Last Done Comments HPV VACCINES (1 - 3-dose series) 2012 DTAP/TDAP/TD VACCINES (1 - Tdap) 2016 HEPATITIS B VACCINES (1 of 3 - 19+ 3-dose series) 03/28 CERVICAL CANCER SCREENING 2018 HPV/Cotest (21-29) 2018 PAP SMEAR 2018 INFLUENZA VACCINE (#1) 2025
--- OUTSIDE RECORDS SUMMARY | 2025-02-14 10:01 | XMS_ITS | Patient Health Record ---
Author Organization [facility] Address [address] [place] [address] Care Team Providers Care Travel Occupational Therapist Name Role Phone Cory Wan Unavailable [phone] Reason For Referral No Information Social History PRAPARE Question Answer Notes Date Completed/Updated: 08/16/2024 What is your current housing situation? I have h ousing Are you worried about losing your housing? No What is the highest level of school that you have finished? 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 Check all that apply I do not have problems meeting my needs Has lack of transportation k ept you from medical appointments, meetings, work or from getting things needed for daily living? No How stressed are you? Stress is when someone feels tense, nervous, anxious, or can\t sleep at night because their mind is troubled Very much In the past year have you sp ent more than 2 nights in a row in a shelter, half-way, jail center, or juvenile correctional facility? No Do you feel physically and e motionally safe where you currently live? Yes In the past year, have you b een afraid of your partner or ex-partner? Yes PRAPARE Score: 5 Encounters Encounter Location Date Provider Diagnosis [address] [place] [address] 09/14/2024 Cory Wan Plan Of Treatment No Information Insurance Providers Payer Name Payer Address Payer Phone Subscriber Number Group Number Insured Name Patient Relationship to Insured Coverage Start Date Coverage End Date [facility] Attn Claims Department [address] [place] [address] [phone] [id number] Lamont Dela Cruz Self - patient is the insured 3
--- OUTSIDE RECORDS SUMMARY | 2025-02-14 10:01 | XMS_ITS | Clinical Summary ---
Author Organization [facility] Address [address] [place] [id number] Care Team Providers Care Regular Senior Care Provider Name Role Phone None, Provider Primary Care Provider Unavaila ble Allergies No known active allergies Social History Tobacco Use Types Packs/Day Years Used Date Smoking Tobacco: Never Smokeless Tobacco: Never Tobacco Cessation:Counseling Given: Not Answered Comments Unknown Sex and Gender Information Value Date Recorded Sex Assigned at Female 10/29/2024 11:31 PM CDT Legal Sex Female 4:26 PM CDT Gender Identity Not on file Sexual Orientation Not on file Last Filed Vital Signs Vital Sign Reading Time Taken Comments Blood Pressure 128/72 10/30/2024 2:30 AM CDT Pulse 70 10/30/2024 2:30 AM CDT Temperature 36.8 C (98.2 F) 10/29/2024 11:42 PM CDT Respiratory Rate 16 10/30/2024 2:30 AM CDT Oxygen Saturation 99% 10/30/2024 2:30 AM CDT Inhaled Oxygen Concentration - - Weight 82.4 kg (181 lb 10.5 oz) 025 12:16 AM CDT Height 160 cm (5' 3) 10/30/2024 12:16 AM CDT Body Mass Index 32.18 10/30/2024 12:16 AM CDT Plan of Treatment Health Maintenance Due Date Last Done Comments Cervical Cancer Screening Pa p Smear (Age 21 to 29) Every 3 Years 1997 Cervical Cancer Screening 1997 Annual Physical 2000 Hepatitis C 2015 Hepatitis B Vaccines (1 of 3 - 19+ 3-dose series) 2016 DTaP, Tdap and Td Vaccines ( 2 - Td or Tdap) 03/24/2019 03/24/2009 COVID-19 Vaccine (2023-2 5 season) 2024 02/13/2021, 01/05/2021, 07/29/2020 HPV Vaccines (1 - 3-dose SCD M series) 2024 Meningococcal Vaccine Aged Out 03/24/2009 No abdias darcy eligible based on patient's age to complete this topic Meningococcal B Vaccine Aged Out No l onger eligible based on patient's age to complete this topic Pneumococcal Vaccine: Pediatrics (0 to 5 Years) and At-Risk Patients (6 to 49 Years) Aged Out No longer eligible b ased on patient's age to complete this topic RSV Immunizations Under 20 Months Aged Out No longer eligible b ased on patient's age to complete this topic Insurance [facility] Care Teams Regular Senior Care Provider Relationship Specialty Start Date End Date None, Provider, PCP - General UNKNOWN PHYSICIAN SPECIALTY 10/29/24
== END 2025-02-14 09:32 | disposition home or self-care (01) ==
PROVIDERS: Visit Provider Ophthalmology
DX: H46.12 Retrobulbar neuritis, left eye (principal)
CPT/HCPCS: 70553; A9577